=== PATIENT | male | born 1975 | race Caucasian/White ===

== ENCOUNTER 2021-04-04 15:23 | Inpatient (IN) ==
[2021-04-04 16:04] VITALS: BMI 35.5
[2021-04-04] MEDS ORDERED: NS 1000 ML 1,000 ML IV ONE ×2 (16:22→17:49)
[2021-04-04] MEDS ORDERED: ZOFRAN INJ 4 MG VIAL IVP ONE ×2 (16:22→19:56)
--- NOTE | 2021-04-04 16:24 | DR.GENAD ---
HPI Time Seen Time Seen by Provider: 04/04/21 16:22 PCP Primary Care Physician: JULIO SOLOMON HPI Comment HPI Comment: Developed cough and body aches on Tuesday after being exposed to someone with the same; tested positive for covid on ; pcp was to call in med but he never did get it; he started having n/v/weakness on and has been unable to keep bs meds down; had an episode of chest pain which lasted a few seconds yesterday; feels occasional sob; no fever, chills, rash, mejia or rash. Complaint/Symptoms Chief Complaint:: PT TESTED POSITIVE FOR COVID TUESDAY. PT C/O NAUSEA, V OMITING, WEAKNESS SINCE TUESDAY. COVID-19 Coronavirus risk:travel/contact w/high risk person: Yes Mode of Arrival Mode of Arrival: Ambulatory Timing Onset of Chief Complaint: 04/04/21 PMH PMH Past Medical History: Yes Past Medical History: Arthritis, Diabetes, Dyslipidemia and Hypertension Past Surgical History: No Family History History of Family Medical Conditions: Yes Social History Does patient currently use any type of tobacco product: No Have you used tobacco products in the last 12 months: No Type of Tobacco Use: None Does any household member use tobacco: No Alcohol Use: None Do you use any recreational Drugs:: No Lives With: Alone Lives Where: Home Infectious screening In the last 2 months have you had wt loss of >10#?: NO Have you had fever, night sweats or hemotysis?: No Have you traveled outside the country in the last 6 months?: No Isolation: Standard ROS Review of Systems Constitutional: See HPI, Malaise and Weakness Eyes: No Symptoms Reported ENTM: No Symptoms Reported Genitourinary: No Symptoms Reported Neurological: No Symptoms Reported Integumentary: No Symptoms Reported Hematologic/Lymphatic: No Symptoms Reported Endocrine: See HPI Psychiatric: No Symptoms Reported PE Vital Signs Vitals: Temperature 97.8 F Pulse Rate 99 Respiratory Rate 22 Blood Pressure 189/96 O2 Sat by Pulse Oximetry 92 General Limitations: No Limitations General Appearance: Alert and In No Apparent Distress Head Head Exam: Normal Inspection Eyes Eye exam: Normal Appearance Neck Neck Exam: Normal Inspection Chest Chest Inspection: Normal Inspection Respiratory Respiratory Exam: Normal Lung Sounds Bilat Respiratory Exam: Bilateral: Clear to Auscultation Cardiovascular Cardiovascular Exam: Regular Rate and Normal Rhythm Abdominal Exam Abdominal Exam: Normal Inspection, Normal Bowel Sounds and Soft Extremities Extremities Exam: Normal Inspection Back Back Exam: Normal Inspection Neurologic Neurological Exam: Alert and Oriented X3 Psychiatric Psychiatric Exam: Normal Affect and Normal Mood Skin Skin Exam: Other (clammy) COURSE Reevaluation 1st: Improved (sugars down to 513) Consultation Call Returned: 19:00 (spoke with Dr Dumont who accepts pt) ROR Labs Reviewed Laboratory Results Reviewed?: Yes Result Diagrams: 04/04/21 16:30 04/04/21 22:10 Laboratory: WBC 4.2 X10^3/uL (3.6-10.0) 04/04/21 16:30 RBC 4.35 X10^6/uL (3.5-5.4) 04/04/21 16:30 Hgb 13.2 g/dL (12.0-16.0) 04/04/21 16:30 Hct 41.0 % (36.0-47.0) 04/04/21 16:30 MCV 94.3 fL (80.0-100.0) 04/04/21 16:30 MCH 30.4 pg (27.0-34.0) 04/04/21 16:30 MCHC 32.2 g/dL (33.0-35.0) L 04/04/21 16:30 RDW 14.1 % (11.6-16.5) 04/04/21 16:30 Plt Count 246 X10^3/uL (150.0-450.0) 04/04/21 16:30 MPV 8.5 fL (7.4-11.0) 04/04/21 16:30 Neut % (Auto) 88.3 % (42.0-75.0) H 04/04/21 16:30 Lymph % (Auto) 4.7 % (21.0-51.0) L 04/04/21 16:30 [place] % (Auto) 5.6 % (0.0-13.0) 04/04/21 16:30 Eos % (Auto) 0.0 % (0.9-2.9) L 04/04/21 16:30 Baso % (Auto) 1.4 % (0.2-1.0) H 04/04/21 16:30 Neut # (Auto) 3.7 x10^3/uL (2.2-4.8) 04/04/21 16:30 Lymph # (Auto) 0.2 X10^3/uL (1.3-2.9) L 04/04/21 16:30 [place] # (Auto) 0.2 x10^3/uL (0.3-0.8) L 04/04/21 16:30 Eos # (Auto) 0.0 x10^3/uL (0.0-0.2) 04/04/21 16:30 Baso # (Auto) 0.1 X10^3/uL (0.0-0.1) 04/04/21 16:30 Absolute Nucleated RBC 0.0 /100WBC 04/04/21 16:30 Sample Site Rra 04/04/21 16:38 ABG pH 7.190 (7.35-7.45) L* 04/04/21 16:38 ABG pCO2 10.0 mmHg (35.0-45.0) L* 04/04/21 16:38 ABG pO2 91.0 mmHg (80.0-100.0) 04/04/21 16:38 ABG HCO3 3.8 mmol/L (22-26) L* 04/04/21 16:38 ABG O2 Saturation 95.0 % (90-100) 04/04/21 16:38 ABG Base Excess -21.8 mmol/L (-2.0-2.0) L 04/04/21 16:38 Ezekiel Test Pos 04/04/21 16:38 A-a Gradient 46.0 mmHg 04/04/21 16:38 FiO2 21.0 04/04/21 16:38 Blood Gas Comments Pt delicia well eb 04/04/21 16:38 Sodium 140 mmol/L (136-145) 04/04/21 22:10 Corrected Sodium 146 mmol/L (136-145) H 04/04/21 22:10 Potassium 4.7 mmol/L (3.5-5.1) 04/04/21 22:10 Chloride 106 mmol/L (98-107) 04/04/21 22:10 Carbon Dioxide 14.2 mmol/L (21-32) L* 04/04/21 22:10 BUN 40 mg/dL (7-18) H 04/04/21 22:10 Creatinine 1.96 mg/dL (0.70-1.30) H 04/04/21 22:10 Est GFR (MDRD) Af Amer 48 (>60) L 04/04/21 22:10 Est GFR (MDRD) Non-Af 40 (>60) L 04/04/21 22:10 Glucose 338 mg/dL (65-99) H 04/04/21 22:10 Calcium 7.5 mg/dL (8.5-10.1) L 04/04/21 22:10 Corrected Calcium 9.7 mg/dL (8.5-10.1) 04/04/21 16:30 Total Bilirubin 0.50 mg/dL (0.2-1.0) 04/04/21 16:30 AST 27 Units/L (15-37) 04/04/21 16:30 ALT 23 Units/L (12-78) 04/04/21 16:30 Alkaline Phosphatase 161 Units/L (46-116) H 04/04/21 16:30 Total Protein 7.0 g/dL (6.4-8.2) 04/04/21 16:30 Albumin 2.2 g/dL (3.4-5.0) L 04/04/21 16:30 Globulin 4.8 g/dL (2.5-4.5) H 04/04/21 16:30 Albumin/Globulin Ratio 0.5 Ratio (1.1-2.1) L 04/04/21 16:30 Specimen Type Clean catch urine 04/04/21 18:03 Urine Color Yellow (YELLOW) 04/04/21 18:03 Urine Appearance Clear (CLEAR) 04/04/21 18:03 Urine pH 5.0 (5.0 - 8.0) 04/04/21 18:03 Ur Specific [place] 1.020 (1.000-1.030) 04/04/21 18:03 Urine Protein 4+ (NEGATIVE) 04/04/21 18:03 Urine Glucose (UA) 4+ (NEGATIVE) 04/04/21 18:03 Urine Ketones 4+ (NEGATIVE) 04/04/21 18:03 Urine Occult Blood 3+ (NEGATIVE) 04/04/21 18:03 Urine Nitrite Negative (NEGATIVE) 04/04/21 18:03 Urine Bilirubin Negative (NEGATIVE) 04/04/21 18:03 Urine Urobilinogen Normal (NORMAL) 04/04/21 18:03 Ur Leukocyte Esterase Negative (NEGATIVE) 04/04/21 18:03 Urine RBC 3-5 /HPF (0-3) A 04/04/21 18:03 Urine WBC 0-2 /HPF (0-5) 04/04/21 18:03 Ur Squamous Epith Cells Rare /HPF (NEGATIVE) 04/04/21 18:03 Amorphous Sediment 1+ /HPF (NEGATIVE) 04/04/21 18:03 Urine Bacteria Trace /HPF (NEGATIVE) 04/04/21 18:03 Coarse Granular Casts Few /HPF (NEGATIVE) 04/04/21 18:03 Urine Mucus Few /HPF (NEGATIVE) 04/04/21 18:03 Ur Culture Indicated? No/not indicated 04/04/21 18:03 Acetone, Semi-Quant Large (NEGATIVE) H 04/04/21 16:30 XRAY XRAY Interpreted by: Radiologist X-ray Results: abd series: No acute intra-abdominal or intrathoracic abnormality detected. Opioid Opioid Risk Tool Total: 0 Total Score Risk Category: Low Risk Copyright: Suhail SMITH predicting aberrant behaviors Diagnosis Discharge Problem: COVID-19 DKA (diabetic ketoacidosis) Qualifiers: Diabetes mellitus type: type 2 Diabetes mellitus complication detail: without coma Qualified Code(s): E11.10 - Type 2 diabetes mellitus with ketoacidosis without coma
[2021-04-04] MEDS ORDERED: NS 1000 ML 1,000 ML ONE ×3 (16:30→20:14)
[2021-04-04] MEDS ORDERED: ZOFRAN INJ 4 MG VIAL ONE ×2 (16:30→23:15)
[2021-04-04 16:37] LABS: BASOPHILS # (AUTO) 0.1 X10^3/uL (0.0-0.1); BASOPHILS % (AUTO) 1.4 % (0.2-1.0); HEMOGLOBIN 13.2 g/dL (12.0-16.0); LYMPHOCYTES # (AUTO) 0.2 X10^3/uL (1.3-2.9); LYMPHOCYTES % (AUTO) 4.7 % (21.0-51.0); MEAN CORPUSCULAR HEMOGLOBIN 30.4 pg (27.0-34.0); MEAN CORPUSCULAR HGB CONC 32.2 g/dL (33.0-35.0); MEAN CORPUSCULAR VOLUME 94.3 fL (80.0-100.0); MEAN PLATELET VOLUME 8.5 fL (7.4-11.0); MONOCYTES # (AUTO) 0.2 x10^3/uL (0.3-0.8); MONOCYTES % (AUTO) 5.6 % (0.0-13.0); NEUTROPHILS # (AUTO) 3.7 x10^3/uL (2.2-4.8); NEUTROPHILS % (AUTO) 88.3 % (42.0-75.0); PLATELET COUNT 246 X10^3/uL (150.0-450.0); RED BLOOD COUNT 4.35 X10^6/uL (3.5-5.4); RED CELL DISTRIBUTION WIDTH 14.1 % (11.6-16.5); WHITE BLOOD COUNT 4.2 X10^3/uL (3.6-10.0)
[2021-04-04 16:45] LABS: ABG BASE EXCESS -21.8 mmol/L (-2.0-2.0)
[2021-04-04 16:47] LABS: ABG ALLEN TEST POS; ABG HCO3 3.8 mmol/L (22-26)
[2021-04-04 16:53] LABS: ALBUMIN 2.2 g/dL (3.4-5.0); CALCIUM 8.3 mg/dL (8.5-10.1); COR CA(FOR HYPOALB) 9.7 mg/dL (8.5-10.1); CREATININE 2.3 mg/dL (0.55-1.02)
[2021-04-04] MEDS ORDERED: MYXREDLIN 100 UNIT/100 ML BAG 100 UNIT/100 ML PLAST..BAG IV ONE (17:05)
[2021-04-04] MEDS ORDERED: HumuLIN R IV ONE (17:11)
[2021-04-04] MEDS ORDERED: HumuLIN R ONE (17:12)
[2021-04-04] MEDS: MYXREDLIN 100 UNIT/100 ML BAG 100 UNIT/100 ML PLAST..BAG IV PRN (17:18)
[2021-04-04 17:24] LABS: CARBON DIOXIDE 10.9 mmol/L (21-32)
--- NOTE | 2021-04-04 18:18 | RAD ---
HISTORYCOVID, NVDSTUDYACUTE ABDOMEN SERIESCOMPARISONNone availableTECHNIQUEAP supine and upright abdominal radiographs with chest radiography, 4 images.FINDINGSGas and stool in non distended colon.Gas in scattered loops of non-distended small bowel.No gross free air.No abnormal calcifications.No acute osseous abnormality.Lungs are clear of focal airspace disease.No cardiomegaly.No pneumothorax.No pleural effusion.IMPRESSIONNo acute intra-abdominal or intrathoracic abnormality detected.Electronically signed by: Henry Bang (Apr 04, 2021 18:15:54)
[2021-04-04 18:26] LABS: BILIRUBIN,URINE NEGATIVE (NEGATIVE); BLOOD/HEMOGLOBIN,URINE 3+ (NEGATIVE); GLUCOSE, URINE 4+ (NEGATIVE); KETONES,URINE 4+ (NEGATIVE); LEUKOCYTE ESTERASE ,URINE NEGATIVE (NEGATIVE); NITRITES,URINE NEGATIVE (NEGATIVE); PROTEIN,URINE 4+ (NEGATIVE); UROBILINOGEN,URINE NORMAL (NORMAL)
[2021-04-04 18:40] LABS: APPEARANCE,URINE CLEAR (CLEAR); COLOR,URINE YELLOW (YELLOW)
[2021-04-04 18:42] LABS: SQUAMOUS EPITHELIAL CELL,UR RARE /HPF (NEGATIVE)
[2021-04-04 18:43] LABS: AMORPHOUS SEDIMENT,UR 1+ /HPF (NEGATIVE); BACTERIA,URINE TRACE /HPF (NEGATIVE); COARSE GRANULAR CASTS,URINE FEW /HPF (NEGATIVE); MUCUS,URINE FEW /HPF (NEGATIVE)
[2021-04-04] MEDS ORDERED: NORCO 5/325 MG TAB PO PRN (19:56)
[2021-04-04] MEDS: NS 1000 ML 1,000 ML IV SCH (20:25)
[2021-04-04] MEDS: SNACK - Diabetic Appropriate PO SCH (21:00)
[2021-04-04 22:26] LABS: CALCIUM 7.5 mg/dL (8.5-10.1); CREATININE 1.96 mg/dL (0.70-1.30)
[2021-04-04 22:29] LABS: CARBON DIOXIDE 14.2 mmol/L (21-32)
[2021-04-04] MEDS: LOTENSIN TAB 10 MG PO SCH (23:52)
[2021-04-04] MEDS: SEROquel TAB 25 mg PO SCH (23:53)
[2021-04-05] MEDS ORDERED: NS 1000 ML 1,000 ML ONE ×2 (05:24→14:52)
[2021-04-05] MEDS: NS 1000 ML 1,000 ML IV SCH ×2 (05:30→12:37)
[2021-04-05 06:07] LABS: BASOPHILS % (AUTO) 0.1 % (0.2-1.0); HEMATOCRIT 33.1 % (42.0-54.0); HEMOGLOBIN 11.4 g/dL (13.5-18.0); LYMPHOCYTES # (AUTO) 0.4 X10^3/uL (1.3-2.9); LYMPHOCYTES % (AUTO) 8.7 % (21.0-51.0); MEAN CORPUSCULAR HEMOGLOBIN 30.5 pg (27.0-34.0); MEAN CORPUSCULAR HGB CONC 34.5 g/dL (33.0-35.0); MEAN CORPUSCULAR VOLUME 88.5 fL (80.0-100.0); MEAN PLATELET VOLUME 7.6 fL (7.4-11.0); MONOCYTES # (AUTO) 0.3 x10^3/uL (0.3-0.8); MONOCYTES % (AUTO) 6.5 % (0.0-13.0); NEUTROPHILS # (AUTO) 3.9 x10^3/uL (2.2-4.8); NEUTROPHILS % (AUTO) 84.7 % (42.0-75.0); PLATELET COUNT 261 X10^3/uL (150.0-450.0); RED BLOOD COUNT 3.75 X10^6/uL (4.7-6.0); RED CELL DISTRIBUTION WIDTH 13.4 % (11.6-16.5); WHITE BLOOD COUNT 4.7 X10^3/uL (3.6-10.0)
[2021-04-05 06:23] LABS: ALBUMIN 1.8 g/dL (3.4-5.0); CALCIUM 7.7 mg/dL (8.5-10.1); CARBON DIOXIDE 18.4 mmol/L (21-32); COR CA(FOR HYPOALB) 9.5 mg/dL (8.5-10.1); CREATININE 1.91 mg/dL (0.70-1.30); TOTAL PROTEIN 6.1 g/dL (6.4-8.2)
[2021-04-05] MEDS: ZOFRAN INJ 4 MG VIAL IVP PRN ×3 (07:30→22:35)
[2021-04-05] MEDS ORDERED: ZOFRAN INJ 4 MG VIAL ONE ×3 (07:47→22:31)
[2021-04-05] MEDS: LOTENSIN TAB 10 MG PO SCH (08:41)
[2021-04-05] MEDS: BROVANA IN SCH ×2 (09:00→20:52)
[2021-04-05] MEDS: PULMICORT NEB TX 0.5 MG NEB SCH ×2 (09:00→20:58)
[2021-04-05 10:52] LABS: TROPONIN I 0.02 ng/mL (0-1.5)
[2021-04-05] MEDS ORDERED: REMDESIVIR 200 MG in NS 250 ML IV 250 ML IV ONE (11:33)
--- NOTE | 2021-04-05 11:56 | DR.H&P ---
H&P History & Physical for Day of: H&P Date: 04/05/21 Chief Complaint Chief Complaint: Generalized weakness Shortness of breath Nausea, vomiting Allergies Allergies Allergy/AdvReac Type Severity Reaction Status Date / Time No Known Drug Allergies Allergy Verified 04/04/21 17:03 History of Present Illness History of Present Illness: Pt is a 45 year old male past medical history of Hypertension, DMT2, presenting with generalized weakness, shortness of breath, n ausea/vomiting, loss of appetite, abdominal pain, nausea, and vomiting for the past 4-5 days. He reports testing positive for COVID-19 at his pcp office. His symptoms have progressively worsened. Labs/imaging: Wbc 4.7, Hgb 11.4, Plt 261, Na 140, K 4.3, Creatinine 1.91, Glucose 214, AST 24, ALT 16, ALKP 124, ABG:pH 7.19, pCO2 10, pO2 91, HCO3 3.8, O2 sat 95% on FiO2 21%. UA positive for ketones and glucose, CRP 72, Troponin negative, D-dimer 2.06. CXR: Multifocal pneumonia, findings are most severe within the left lung. Pt was given 2L bolus NS in the ED and started on DKA protocol. His glucose levels appropriately responded. Will get COVID-19 test to confirm, and start on treatment protocol that includes: IVF NS@125ml/h, Remdesivir, IV Decadron 6mg, scheduled Bronchodilators, Antibiotics: Zosyn, Ivermectin, Eliquis 5mg BID, immune supporting supplements, supplemental O2, I/S, Respiratory therapy consult, Pneumonia protocol, SSI. Unable to get CTA chest at this time due to renal function. Resume home medications, hold nephrotoxic agents. Pt is currently requiring 3L nasal cannula supplemental O2, titrate/wean as tolerated. Continue to closely monitor and follow up labs/imaging. Time spent on clinical assessment, reviewing labs and imaging, decision making, and documentation greater than 45 minutes. Past Medical History Past Medical History: Arthritis, Diabetes, Dyslipidemia and Hypertension Family History Family Medical History: Diabetes Mellitus, [place], Sudden Cardiac and Hypertension Social History Does patient currently use any type of tobacco product: No Have you used tobacco products in the last 12 months: No Type of Tobacco Use: None Does any household member use tobacco: No Alcohol Use: None Drug Use: None Medications Home Medications: No Known Drug Allergies Allergy (Verified 04/04/21 17:03) Labs Result Diagrams: 04/05/21 05:52 04/05/21 05:52 Labs: Laboratory WBC 4.7 X10^3/uL (3.6-10.0) 04/05/21 05:52 RBC 3.75 X10^6/uL (4.7-6.0) L 04/05/21 05:52 Hgb 11.4 g/dL (13.5-18.0) L 04/05/21 05:52 Hct 33.1 % (42.0-54.0) L 04/05/21 05:52 MCV 88.5 fL (80.0-100.0) 04/05/21 05:52 MCH 30.5 pg (27.0-34.0) 04/05/21 05:52 MCHC 34.5 g/dL (33.0-35.0) 04/05/21 05:52 RDW 13.4 % (11.6-16.5) 04/05/21 05:52 Plt Count 261 X10^3/uL (150.0-450.0) 04/05/21 05:52 MPV 7.6 fL (7.4-11.0) 04/05/21 05:52 Neut % (Auto) 84.7 % (42.0-75.0) H 04/05/21 05:52 Lymph % (Auto) 8.7 % (21.0-51.0) L 04/05/21 05:52 [place] % (Auto) 6.5 % (0.0-13.0) 04/05/21 05:52 Eos % (Auto) 0.0 % (0.9-2.9) L 04/05/21 05:52 Baso % (Auto) 0.1 % (0.2-1.0) L 04/05/21 05:52 Neut # (Auto) 3.9 x10^3/uL (2.2-4.8) 04/05/21 05:52 Lymph # (Auto) 0.4 X10^3/uL (1.3-2.9) L 04/05/21 05:52 [place] # (Auto) 0.3 x10^3/uL (0.3-0.8) 04/05/21 05:52 Eos # (Auto) 0.0 x10^3/uL (0.0-0.2) 04/05/21 05:52 Baso # (Auto) 0.0 X10^3/uL (0.0-0.1) 04/05/21 05:52 Absolute Nucleated RBC 0.0 /100WBC 04/05/21 05:52 D-Dimer 2.06 ug/ml (0.0-0.57) H* 04/05/21 10:26 Sample Site Rra 04/04/21 16:38 ABG pH 7.190 (7.35-7.45) L* 04/04/21 16:38 ABG pCO2 10.0 mmHg (35.0-45.0) L* 04/04/21 16:38 ABG pO2 91.0 mmHg (80.0-100.0) 04/04/21 16:38 ABG HCO3 3.8 mmol/L (22-26) L* 04/04/21 16:38 ABG O2 Saturation 95.0 % (90-100) 04/04/21 16:38 ABG Base Excess -21.8 mmol/L (-2.0-2.0) L 04/04/21 16:38 Ezekiel Test Pos 04/04/21 16:38 A-a Gradient 46.0 mmHg 04/04/21 16:38 FiO2 21.0 04/04/21 16:38 Blood Gas Comments Pt delicia well eb 04/04/21 16:38 Sodium 140 mmol/L (136-145) 04/05/21 05:52 Corrected Sodium 143 mmol/L (136-145) 04/05/21 05:52 Potassium 4.3 mmol/L (3.5-5.1) 04/05/21 05:52 Chloride 107 mmol/L (98-107) 04/05/21 05:52 Carbon Dioxide 18.4 mmol/L (21-32) L 04/05/21 05:52 BUN 39 mg/dL (7-18) H 04/05/21 05:52 Creatinine 1.91 mg/dL (0.70-1.30) H 04/05/21 05:52 Est GFR (MDRD) Af Amer 49 (>60) L 04/05/21 05:52 Est GFR (MDRD) Non-Af 41 (>60) L 04/05/21 05:52 Glucose 214 mg/dL (65-99) H 04/05/21 05:52 Calcium 7.7 mg/dL (8.5-10.1) L 04/05/21 05:52 Corrected Calcium 9.5 mg/dL (8.5-10.1) 04/05/21 05:52 Total Bilirubin 0.20 mg/dL (0.2-1.0) 04/05/21 05:52 AST 24 Units/L (15-37) 04/05/21 05:52 ALT 16 Units/L (12-78) 04/05/21 05:52 Alkaline Phosphatase 124 Units/L (46-116) H 04/05/21 05:52 Troponin I 0.02 ng/mL (0-1.5) 04/05/21 10:26 C-Reactive Protein 72.80 mg/L (0-3.0) H 04/05/21 10:26 Total Protein 6.1 g/dL (6.4-8.2) L 04/05/21 05:52 Albumin 1.8 g/dL (3.4-5.0) L 04/05/21 05:52 Globulin 4.3 g/dL (2.5-4.5) 04/05/21 05:52 Albumin/Globulin Ratio 0.4 Ratio (1.1-2.1) L 04/05/21 05:52 Specimen Type Clean catch urine 04/04/21 18:03 Urine Color Yellow (YELLOW) 04/04/21 18:03 Urine Appearance Clear (CLEAR) 04/04/21 18:03 Urine pH 5.0 (5.0 - 8.0) 04/04/21 18:03 Ur Specific [place] 1.020 (1.000-1.030) 04/04/21 18:03 Urine Protein 4+ (NEGATIVE) 04/04/21 18:03 Urine Glucose (UA) 4+ (NEGATIVE) 04/04/21 18:03 Urine Ketones 4+ (NEGATIVE) 04/04/21 18:03 Urine Occult Blood 3+ (NEGATIVE) 04/04/21 18:03 Urine Nitrite Negative (NEGATIVE) 04/04/21 18:03 Urine Bilirubin Negative (NEGATIVE) 04/04/21 18:03 Urine Urobilinogen Normal (NORMAL) 04/04/21 18:03 Ur Leukocyte Esterase Negative (NEGATIVE) 04/04/21 18:03 Urine RBC 3-5 /HPF (0-3) A 04/04/21 18:03 Urine WBC 0-2 /HPF (0-5) 04/04/21 18:03 Ur Squamous Epith Cells Rare /HPF (NEGATIVE) 04/04/21 18:03 Amorphous Sediment 1+ /HPF (NEGATIVE) 04/04/21 18:03 Urine Bacteria Trace /HPF (NEGATIVE) 04/04/21 18:03 Coarse Granular Casts Few /HPF (NEGATIVE) 04/04/21 18:03 Urine Mucus Few /HPF (NEGATIVE) 04/04/21 18:03 Ur Culture Indicated? No/not indicated 04/04/21 18:03 Acetone, Semi-Quant Large (NEGATIVE) H 04/04/21 16:30 Review of Systems Constitutional: Chills and Weakness Eyes: No Symptoms Reported ENT: No Symptoms Reported Respiratory: Cough and Shortness of Breath Cardiovascular: No Symptoms Reported Gastrointestinal: Nausea, Vomiting and Abdominal Pain; denies Diarrhea and Constipation Genitourinary: No Symptoms Reported Musculoskeletal: No Symptoms Reported Skin: No Symptoms Reported Neurological: No Symptoms Reported Physical Exam Vital Signs: Temperature 98.0 F Pulse Rate [Left Radial] 86 Pulse Rate 99 Respiratory Rate 20 Blood Pressure [Left Arm] 177/90 Blood Pressure 189/96 O2 Sat by Pulse Oximetry 90 Oriented: Normal Eyes: Normal Ear: Normal Nose: Normal Throat: Normal Respiratory: Diminished Throughout and Rhonchi Throughout Cardiovascular: Normal : Normal Auscultation: Bowel Sounds: Normal Palpation: Normal Tenderness: Normal Skin: Normal Musculoskeletal: Normal Psychiatric: Normal Mood Description: Calm and Appropriate Affect: Normal Speech Pattern: Clear and Appropriate Assessment/Plan (1) Pneumonia due to COVID-19 virus: Status: Acute Plan: Per protocol (2) DKA (diabetic ketoacidosis): Qualifiers: Diabetes mellitus complication detail: without coma Diabetes mellitus type: type 2 Qualified Code(s): E11.10 - Type 2 diabetes mellitus with ketoacidosis without coma Narrative Support Text: Per protocol Status: Acute (3) Acute renal failure: Status: Acute Plan: IVF, monitor renal function Review H&P Reviewed: Yes Patient was examined?: Yes
[2021-04-05] MEDS ORDERED: PHARMACY CONSULT - IVERMECTIN XX SCH (12:00)
[2021-04-05] MEDS ORDERED: NS 1000 ML 1,000 ML IV SCH (12:00)
--- NOTE | 2021-04-05 12:34 | RAD ---
HISTORYReason For StudySTUDYCHEST, 1 [id number]/07/21FINDINGSTrachea is midline. Heart size is normal. There are multifocal dense airspace opacities throughout both lungs, findings are more severe on the left. No pleural effusion or pneumothorax. No acute osseous abnormality.IMPRESSIONMultifocal pneumonia, findings are most severe within the left lung.Electronically signed by: CADEN TALAVERA (Apr 05, 2021 12:32:35)
[2021-04-05] MEDS ORDERED: DECADRON INJ ONE (12:45)
[2021-04-05] MEDS ORDERED: REMDESIVIR IV ONE (12:46)
[2021-04-05] MEDS ORDERED: ELIQUIS ONE (12:46)
[2021-04-05] MEDS ORDERED: NS 250 ML IV 250 ML IV ONE (12:46)
[2021-04-05] MEDS: ELIQUIS PO SCH ×3 (12:58→21:46)
[2021-04-05] MEDS: DECADRON INJ IVP SCH (12:59)
[2021-04-05] MEDS ORDERED: SOLU-Medrol 40 MG VIAL IVP SCH (14:00)
[2021-04-05] MEDS: APRESOLINE INJ 20 MG VIAL IVP PRN ×2 (14:20→21:36)
[2021-04-05] MEDS: ZOSYN VIAL 3.375 GRAMS 3.375 G in NS 100 ML IV + SPIKE MINIBAG* 100 ML IV SCH ×2 (14:22→22:37)
[2021-04-05] MEDS: APRESOLINE INJ 20 MG VIAL ONE ×2 (14:22→14:23)
[2021-04-05] MEDS ORDERED: NS 50 ML IV 50 ML IV ONE (14:52)
[2021-04-05] MEDS ORDERED: ASCORBIC ACID INJ MULTI-DOSE VIAL IV ONE (14:52)
[2021-04-05] MEDS: ASCORBIC ACID INJ MULTI-DOSE VIAL 1,500 MG in NS 100 ML IV 100 ML IV SCH ×2 (15:22→21:22)
[2021-04-05] MEDS ORDERED: MYXREDLIN 100 UNIT/100 ML BAG 100 UNIT/100 ML PLAST..BAG IV ONE (20:20)
[2021-04-05] MEDS: MYXREDLIN 100 UNIT/100 ML BAG 100 UNIT/100 ML PLAST..BAG IV PRN (20:31)
[2021-04-05] MEDS ORDERED: APRESOLINE INJ 20 MG VIAL ONE (21:34)
[2021-04-05] MEDS: SNACK - Diabetic Appropriate PO SCH (21:45)
[2021-04-05] MEDS: PEPCID TAB 40 MG PO SCH (21:46)
[2021-04-05] MEDS: ZINC SULFATE PO SCH (21:47)
[2021-04-05] MEDS: SEROquel TAB 25 mg PO SCH (21:47)
[2021-04-06] MEDS ORDERED: NS 100 ML IV 100 ML ONE ×2 (02:48→08:59)
[2021-04-06] MEDS ORDERED: ASCORBIC ACID INJ MULTI-DOSE VIAL IV ONE ×2 (02:50→08:59)
[2021-04-06] MEDS: ASCORBIC ACID INJ MULTI-DOSE VIAL 1,500 MG in NS 100 ML IV 100 ML IV SCH ×4 (03:00→20:00)
[2021-04-06 04:43] LABS: BASOPHILS % (AUTO) 0.4 % (0.2-1.0); HEMATOCRIT 35.8 % (42.0-54.0); HEMOGLOBIN 12.1 g/dL (13.5-18.0); LYMPHOCYTES # (AUTO) 0.2 X10^3/uL (1.3-2.9); LYMPHOCYTES % (AUTO) 3.8 % (21.0-51.0); MEAN CORPUSCULAR HEMOGLOBIN 30.1 pg (27.0-34.0); MEAN CORPUSCULAR HGB CONC 33.8 g/dL (33.0-35.0); MEAN PLATELET VOLUME 7.9 fL (7.4-11.0); MONOCYTES # (AUTO) 0.3 x10^3/uL (0.3-0.8); MONOCYTES % (AUTO) 5.2 % (0.0-13.0); NEUTROPHILS # (AUTO) 5.8 x10^3/uL (2.2-4.8); NEUTROPHILS % (AUTO) 90.6 % (42.0-75.0); PLATELET COUNT 259 X10^3/uL (150.0-450.0); RED BLOOD COUNT 4.02 X10^6/uL (4.7-6.0); RED CELL DISTRIBUTION WIDTH 13.4 % (11.6-16.5); WHITE BLOOD COUNT 6.4 X10^3/uL (3.6-10.0)
[2021-04-06] MEDS ORDERED: APRESOLINE INJ 20 MG VIAL ONE ×2 (04:46→10:08)
[2021-04-06 04:54] LABS: ALBUMIN 1.6 g/dL (3.4-5.0); CALCIUM 7.6 mg/dL (8.5-10.1); CARBON DIOXIDE 17.1 mmol/L (21-32); COR CA(FOR HYPOALB) 9.5 mg/dL (8.5-10.1); CREATININE 1.68 mg/dL (0.70-1.30); TOTAL PROTEIN 6.1 g/dL (6.4-8.2)
[2021-04-06] MEDS: NS 1000 ML 1,000 ML IV SCH ×4 (04:58→20:00)
[2021-04-06] MEDS ORDERED: NS 1000 ML 1,000 ML ONE (04:58)
[2021-04-06] MEDS: APRESOLINE INJ 20 MG VIAL IVP PRN (04:58)
[2021-04-06 05:50] LABS: PLATELET MORPHOLOGY COMMENT NORMAL (NORMAL)
[2021-04-06] MEDS: ZOSYN VIAL 3.375 GRAMS 3.375 G in NS 100 ML IV + SPIKE MINIBAG* 100 ML IV SCH ×3 (06:02→22:00)
--- NOTE | 2021-04-06 06:18 | RAD ---
HISTORYFollow-up COVID-19STUDYChest AP [id number]/08/2021FINDINGSHeart size is normal. Flor are normal. Right lung is now clear. I mprovement is noted in the left lung infiltrates however some residual interstitial and ground-glass infiltrates remain. No pleural effusions are identified. No pneumothoraces are present. Bony thorax i s unremarkable.IMPRESSIONOverall improvement in the bilateral infiltrates being followed with the rig ht lung now clear and slightly decreasing infiltrates on the leftElectronically signed by: WILFRIDO BACH (Apr 06, 2021 06:16:27)
[2021-04-06] MEDS ORDERED: PHENERGAN INJ 25 MG IM ONE (08:55)
[2021-04-06] MEDS: PHENERGAN INJ 25 MG IM PRN (08:59)
[2021-04-06] MEDS ORDERED: APRESOLINE INJ 20 MG VIAL IVP PRN (09:17)
[2021-04-06] MEDS: DECADRON INJ IVP SCH (09:20)
[2021-04-06] MEDS ORDERED: DECADRON INJ ONE (09:22)
[2021-04-06] MEDS: PULMICORT NEB TX 0.5 MG NEB SCH ×2 (10:14→21:20)
[2021-04-06] MEDS: BROVANA IN SCH ×2 (10:14→21:16)
[2021-04-06] MEDS ORDERED: HumuLIN R ONE ×3 (11:10→14:29)
[2021-04-06] MEDS: HumuLIN R SC PRN ×4 (11:14→17:56)
--- NOTE | 2021-04-06 11:44 | PCM.PROG ---
Progress Note Progress Note for Day of Date of Exam: 04/06/21 Subjective Subjective: Pt is a 45 year old male past medical history of Hypertension, DMT2, admitted for COVID-19 pneumonia, DKA, and Acute Renal Failure. This morning patient reports some improvement in respiratory symptoms. He still reports feeling nauseous and weak. Labs/imaging: Wbc 6.4, Hgb 12.1, Plt 259, Na 144, K 4.1, Creatinine 1.68, Glucose 179, CRP 86, CXR: Overall improvement in the bilateral infiltrates being followed with the right lung now clear and slightly decreasing infiltrates on the left. Treatment course includes: IVF NS@125ml/h, Remdesivir, IV Decadron 6mg, scheduled Bronchodilators, Antibiotics: Zosyn, Ivermectin, Eliquis 5mg BID (due to elevated D-dimer), Zofran prn, immune supporting supplements, supplemental O2, I/S, Respiratory therapy consult, Pneumonia protocol, DKA protocol, SSI. Unable to get CTA chest at this time due to renal function. Hold nephrotoxic agents. Will discontinue insulin gtt, start patient on diabetic diet. Pt is currently requiring 3L nasal cannula sup plemental O2, titrate/wean as tolerated. Continue to closely monitor and follow up labs/imaging. Time spent on clinical assessment, reviewing labs and imaging, decision making, and documentation greater than 45 minutes. Past Medical Family Social History Past Med/Fam/Surg Hx: No changes since H&P Allergies: Allergies No Known Drug Allergies Allergy (Verified 04/04/21 17:03) Review of Systems ROS: No change since H&P Vital Signs and I&O's Vital Signs: Temperature 97.7 F Pulse Rate [Left Radial] 97 Pulse Rate 92 Respiratory Rate 24 Blood Pressure [Left Arm] 185/94 Blood Pressure 180/94 O2 Sat by Pulse Oximetry 96 Intake and Output: Intake & Output 04/03/21 04/04/21 04/05/21 04/06/21 23:59 23:59 23:59 23:59 Intake Total 2179 / 2179 3060 / 3060 391 / 391 Output Total 450 / 450 500 / 500 Balance 2179 / 2179 2610 / 2610 -109 / -109 Physical Exam Oriented: Normal Eyes: Normal Ear: Normal Nose: Normal Throat: Normal Respiratory: Diminished Cardiovascular: Normal : Normal Auscultation: Bowel Sounds: Normal Tenderness: Normal Skin: Normal Musculoskeletal: Normal Psychiatric: Normal Mood Description: Calm and Appropriate Affect: Normal Speech Pattern: Clear and Appropriate Laboratory and Diagnostics Result Diagrams: 04/06/21 03:58 04/06/21 03:58 Labs: Laboratory WBC 6.4 X10^3/uL (3.6-10.0) 04/06/21 03:58 RBC 4.02 X10^6/uL (4.7-6.0) L 04/06/21 03:58 Hgb 12.1 g/dL (13.5-18.0) L 04/06/21 03:58 Hct 35.8 % (42.0-54.0) L 04/06/21 03:58 MCV 89.0 fL (80.0-100.0) 04/06/21 03:58 MCH 30.1 pg (27.0-34.0) 04/06/21 03:58 MCHC 33.8 g/dL (33.0-35.0) 04/06/21 03:58 RDW 13.4 % (11.6-16.5) 04/06/21 03:58 Plt Count 259 X10^3/uL (150.0-450.0) 04/06/21 03:58 Plt Count Comment Adequate (ADEQUATE) 04/06/21 03:58 MPV 7.9 fL (7.4-11.0) 04/06/21 03:58 Neut % (Auto) 90.6 % (42.0-75.0) H 04/06/21 03:58 Lymph % (Auto) 3.8 % (21.0-51.0) L 04/06/21 03:58 [place] % (Auto) 5.2 % (0.0-13.0) 04/06/21 03:58 Eos % (Auto) 0.0 % (0.9-2.9) L 04/06/21 03:58 Baso % (Auto) 0.4 % (0.2-1.0) 04/06/21 03:58 Neut # (Auto) 5.8 x10^3/uL (2.2-4.8) H 04/06/21 03:58 Lymph # (Auto) 0.2 X10^3/uL (1.3-2.9) L 04/06/21 03:58 [place] # (Auto) 0.3 x10^3/uL (0.3-0.8) 04/06/21 03:58 Eos # (Auto) 0.0 x10^3/uL (0.0-0.2) 04/06/21 03:58 Baso # (Auto) 0.0 X10^3/uL (0.0-0.1) 04/06/21 03:58 Absolute Nucleated RBC 0.0 /100WBC 04/06/21 03:58 Total Counted 100 04/06/21 03:58 Neutrophils % (Manual) 98 % (39-76) H 04/06/21 03:58 Lymphocytes % (Manual) 2 % (13-43) L 04/06/21 03:58 Plt Morphology Comment Normal (NORMAL) 04/06/21 03:58 RBC Morphology Normal (NORMAL) 04/06/21 03:58 D-Dimer 2.06 ug/ml (0.0-0.57) H* 04/05/21 10:26 Sample Site Rra 04/04/21 16:38 ABG pH 7.190 (7.35-7.45) L* 04/04/21 16:38 ABG pCO2 10.0 mmHg (35.0-45.0) L* 04/04/21 16:38 ABG pO2 91.0 mmHg (80.0-100.0) 04/04/21 16:38 ABG HCO3 3.8 mmol/L (22-26) L* 04/04/21 16:38 ABG O2 Saturation 95.0 % (90-100) 04/04/21 16:38 ABG Base Excess -21.8 mmol/L (-2.0-2.0) L 04/04/21 16:38 Ezekiel Test Pos 04/04/21 16:38 A-a Gradient 46.0 mmHg 04/04/21 16:38 FiO2 21.0 04/04/21 16:38 Blood Gas Comments Pt delicia well eb 04/04/21 16:38 Sodium 144 mmol/L (136-145) 04/06/21 03:58 Corrected Sodium 146 mmol/L (136-145) H 04/06/21 03:58 Potassium 4.1 mmol/L (3.5-5.1) 04/06/21 03:58 Chloride 111 mmol/L (98-107) H 04/06/21 03:58 Carbon Dioxide 17.1 mmol/L (21-32) L 04/06/21 03:58 BUN 35 mg/dL (7-18) H 04/06/21 03:58 Creatinine 1.68 mg/dL (0.70-1.30) H 04/06/21 03:58 Est GFR (MDRD) Af Amer 57 (>60) L 04/06/21 03:58 Est GFR (MDRD) Non-Af 47 (>60) L 04/06/21 03:58 Glucose 179 mg/dL (65-99) H 04/06/21 03:58 Calcium 7.6 mg/dL (8.5-10.1) L 04/06/21 03:58 Corrected Calcium 9.5 mg/dL (8.5-10.1) 04/06/21 03:58 Total Bilirubin 0.20 mg/dL (0.2-1.0) 04/06/21 03:58 AST 22 Units/L (15-37) 04/06/21 03:58 ALT 13 Units/L (12-78) 04/06/21 03:58 Alkaline Phosphatase 110 Units/L (46-116) 04/06/21 03:58 Troponin I 0.02 ng/mL (0-1.5) 04/05/21 10:26 C-Reactive Protein 86.70 mg/L (0-3.0) H 04/06/21 03:58 Total Protein 6.1 g/dL (6.4-8.2) L 04/06/21 03:58 Albumin 1.6 g/dL (3.4-5.0) L 04/06/21 03:58 Globulin 4.5 g/dL (2.5-4.5) 04/06/21 03:58 Albumin/Globulin Ratio 0.4 Ratio (1.1-2.1) L 04/06/21 03:58 Specimen Type Clean catch urine 04/04/21 18:03 Urine Color Yellow (YELLOW) 04/04/21 18:03 Urine Appearance Clear (CLEAR) 04/04/21 18:03 Urine pH 5.0 (5.0 - 8.0) 04/04/21 18:03 Ur Specific [place] 1.020 (1.000-1.030) 04/04/21 18:03 Urine Protein 4+ (NEGATIVE) 04/04/21 18:03 Urine Glucose (UA) 4+ (NEGATIVE) 04/04/21 18:03 Urine Ketones 4+ (NEGATIVE) 04/04/21 18:03 Urine Occult Blood 3+ (NEGATIVE) 04/04/21 18:03 Urine Nitrite Negative (NEGATIVE) 04/04/21 18:03 Urine Bilirubin Negative (NEGATIVE) 04/04/21 18:03 Urine Urobilinogen Normal (NORMAL) 04/04/21 18:03 Ur Leukocyte Esterase Negative (NEGATIVE) 04/04/21 18:03 Urine RBC 3-5 /HPF (0-3) A 04/04/21 18:03 Urine WBC 0-2 /HPF (0-5) 04/04/21 18:03 Ur Squamous Epith Cells Rare /HPF (NEGATIVE) 04/04/21 18:03 Amorphous Sediment 1+ /HPF (NEGATIVE) 04/04/21 18:03 Urine Bacteria Trace /HPF (NEGATIVE) 04/04/21 18:03 Coarse Granular Casts Few /HPF (NEGATIVE) 04/04/21 18:03 Urine Mucus Few /HPF (NEGATIVE) 04/04/21 18:03 Ur Culture Indicated? No/not indicated 04/04/21 18:03 Acetone, Semi-Quant Large (NEGATIVE) H 04/04/21 16:30 SARS CoV-2 RNA Rapid SHIRIN Positive (NEGATIVE) A 04/05/21 13:00 Plan (1) Pneumonia due to COVID-19 virus: Status: Acute Plan: Per protocol (2) DKA (diabetic ketoacidosis): Status: Acute Qualifiers: Diabetes mellitus complication detail: without coma Diabetes mellitus type: type 2 Qualified Code(s): E11.10 - Type 2 diabetes mellitus with ketoacidosis without coma (3) Acute renal failure: Status: Acute Plan: IVF, monitor renal function
[2021-04-06] MEDS ORDERED: PEPCID TAB 40 MG ONE (11:49)
[2021-04-06] MEDS ORDERED: ZINC SULFATE ONE (11:49)
[2021-04-06] MEDS ORDERED: REMDESIVIR IV ONE (11:50)
[2021-04-06] MEDS ORDERED: ELIQUIS ONE (11:50)
[2021-04-06] MEDS ORDERED: NS 250 ML IV 250 ML IV ONE (11:50)
[2021-04-06] MEDS: REMDESIVIR 100 MG in NS 250 ML IV 250 ML IV SCH (11:53)
[2021-04-06] MEDS: PEPCID TAB 40 MG PO SCH ×2 (11:55→20:00)
[2021-04-06] MEDS: ELIQUIS PO SCH ×2 (11:55→20:00)
[2021-04-06] MEDS: IVERMECTIN PO SCH (11:55)
[2021-04-06] MEDS: ZINC SULFATE PO SCH ×2 (11:56→20:43)
[2021-04-06] MEDS ORDERED: CATAPRES TAB 0.1 MG PO ONE (12:47)
[2021-04-06] MEDS ORDERED: TYLENOL 325 MG TAB PO PRN (12:48)
[2021-04-06] MEDS ORDERED: CATAPRES TAB 0.1 MG ONE ×2 (12:56→12:58)
[2021-04-06] MEDS ORDERED: TYLENOL 325 MG TAB PO ONE (12:57)
[2021-04-06] MEDS: CHLORASEPTIC SPRAY MT SCH ×3 (14:04→20:00)
[2021-04-06] MEDS: MAGIC MOUTHWASH MT SCH (14:15)
[2021-04-06] MEDS ORDERED: ZOSYN VIAL 3.375 GRAMS IV ONE (14:22)
[2021-04-06] MEDS ORDERED: NS 100 ML IV + SPIKE MINIBAG* 100 ML IV ONE (14:22)
[2021-04-06] MEDS: SNACK - Diabetic Appropriate PO SCH (20:00)
[2021-04-06] MEDS: SEROquel TAB 25 mg PO SCH (20:42)
[2021-04-07] MEDS: MAGIC MOUTHWASH MT SCH ×4 (00:01→22:41)
[2021-04-07] MEDS: ASCORBIC ACID INJ MULTI-DOSE VIAL 1,500 MG in NS 100 ML IV 100 ML IV SCH ×2 (02:40→10:59)
[2021-04-07] MEDS: ZOFRAN INJ 4 MG VIAL IVP PRN (04:30)
[2021-04-07] MEDS: NS 1000 ML 1,000 ML IV SCH (05:00)
[2021-04-07 05:09] LABS: BASOPHILS % (AUTO) 0.1 % (0.2-1.0); HEMATOCRIT 37.3 % (42.0-54.0); HEMOGLOBIN 12.5 g/dL (13.5-18.0); LYMPHOCYTES # (AUTO) 0.3 X10^3/uL (1.3-2.9); MEAN CORPUSCULAR HEMOGLOBIN 30.4 pg (27.0-34.0); MEAN CORPUSCULAR HGB CONC 33.5 g/dL (33.0-35.0); MEAN CORPUSCULAR VOLUME 90.6 fL (80.0-100.0); MEAN PLATELET VOLUME 8.3 fL (7.4-11.0); MONOCYTES # (AUTO) 0.4 x10^3/uL (0.3-0.8); MONOCYTES % (AUTO) 5.8 % (0.0-13.0); NEUTROPHILS # (AUTO) 6.4 x10^3/uL (2.2-4.8); NEUTROPHILS % (AUTO) 90.1 % (42.0-75.0); PLATELET COUNT 307 X10^3/uL (150.0-450.0); RED BLOOD COUNT 4.12 X10^6/uL (4.7-6.0); RED CELL DISTRIBUTION WIDTH 13.9 % (11.6-16.5); WHITE BLOOD COUNT 7.2 X10^3/uL (3.6-10.0)
[2021-04-07 05:33] LABS: ALBUMIN 1.4 g/dL (3.4-5.0); CALCIUM 7.3 mg/dL (8.5-10.1); COR CA(FOR HYPOALB) 9.4 mg/dL (8.5-10.1); CREATININE 1.79 mg/dL (0.70-1.30); TOTAL PROTEIN 5.9 g/dL (6.4-8.2)
[2021-04-07 05:50] LABS: CARBON DIOXIDE 7.8 mmol/L (21-32)
[2021-04-07 05:56] LABS: PLATELET MORPHOLOGY COMMENT NORMAL (NORMAL)
[2021-04-07] MEDS: ZOSYN VIAL 3.375 GRAMS 3.375 G in NS 100 ML IV + SPIKE MINIBAG* 100 ML IV SCH ×2 (05:56→20:40)
[2021-04-07] MEDS: PHENERGAN INJ 25 MG IM PRN (05:57)
--- NOTE | 2021-04-07 06:23 | RAD ---
HISTORYPNEUMONIA F/USTUDYCHEST, 1 [id number]/2021.TECHNIQUEAP view of the chestFINDINGSCardiac and mediastinal contours are within normal limits. Interval worsening in scattered bilateral airspace opacities, worse on the left in the midlung. No definite pleural effusion or pneumothorax.IMPRESSIONInterval worsening of COVID pneumonia.Electronically signed by: Bart Pineda (Apr 07, 2021 06:20:53)
[2021-04-07] MEDS ORDERED: MORPHINE SULFATE INJ 2 MG INJ ONE (08:35)
[2021-04-07] MEDS ORDERED: MORPHINE SULFATE INJ 2 MG INJ IVP ONE (08:46)
[2021-04-07] MEDS ORDERED: NORMODYNE INJ 100 MG VIAL IVP PRN (08:47)
[2021-04-07 09:17] LABS: CKMB % 0.8 % (<4); CREATINE KINASE 217 Units/L (39-308); CREATINE KINASE MB 1.8 ng/mL (0-4.0); TROPONIN I < 0.02 ng/mL (0-1.5)
--- NOTE | 2021-04-07 09:24 | PCM.PROG ---
Progress Note Progress Note for Day of Date of Exam: 04/07/21 Subjective Subjective: Pt is a 45 year old male past medical history of Hypertension, DMT2, admitted for COVID-19 pneumonia, DKA, and Acute Renal Failure. This morning patient's respiratory status acutely declined and he was placed from heated high flow to BiPAP support. He is also complaining of chest pain. Labs/imaging: Wbc 7.2, Hgb 12.5, Plt 307, Na 139, K 4.7, HCO3 7.8, Creatinine 1.79, Glucose 179, CRP 86>95, CXR: Interval worsening in scattered bilateral airspace opacities, worse on the left in the midlung. Treatment course includes: IVF NS@125ml/h, Remdesivir, IV Decadron 6mg, scheduled Bronchodilators, Antibiotics: Zosyn, Ivermectin, Eliquis 5mg BID (due to elevated D-dimer), Zofran prn, immune sup porting supplements, supplemental O2, I/S, Respiratory therapy consult, Pneumonia protocol, DKA protocol, SSI. Hold nephrotoxic agents. Restart patient on DKA protocol. Ekg no STEMI, will get cardiac enzymes and ABG stat. Pt now with acute respiratory failure. CTA chest ordered. Repeat CMP at noon. Continue to closely monitor and follow up labs/imaging. Critical care time spent 30-74 minutes in clinical assessment, reviewing labs/imaging, decision making, and documentation. Past Medical Family Social History Past Med/Fam/Surg Hx: No changes since H&P Allergies: Allergies No Known Drug Allergies Allergy (Verified 04/04/21 17:03) Review of Systems ROS: No change since H&P Vital Signs and I&O's Vital Signs: Temperature 97.0 F Pulse Rate [Left Radial] 97 Pulse Rate 88 Respiratory Rate 21 Blood Pressure [Left Arm] 185/94 Blood Pressure 132/90 O2 Sat by Pulse Oximetry 88 Intake and Output: Intake & Output 04/04/21 04/05/21 04/06/21 04/07/21 23:59 23:59 23:59 23:59 Intake Total 2179 / 2179 3060 / 3060 771 / 771 400 / 400 Output Total 450 / 450 1000 / 1000 Balance 2179 / 2179 2610 / 2610 -229 / -229 400 / 400 Physical Exam Oriented: Normal Eyes: Normal Ear: Normal Nose: Normal Throat: Normal Respiratory: Diminished and Rales Cardiovascular: Normal : Normal Auscultation: Bowel Sounds: Normal Tenderness: Normal Skin: Normal Musculoskeletal: Normal Psychiatric: Anxiety Mood Description: Anxious Affect: Anxious Speech Pattern: Unclear (on BiPAP) Laboratory and Diagnostics Result Diagrams: 04/07/21 04:41 04/07/21 04:41 Labs: Laboratory WBC 7.2 X10^3/uL (3.6-10.0) 04/07/21 04:41 RBC 4.12 X10^6/uL (4.7-6.0) L 04/07/21 04:41 Hgb 12.5 g/dL (13.5-18.0) L 04/07/21 04:41 Hct 37.3 % (42.0-54.0) L 04/07/21 04:41 MCV 90.6 fL (80.0-100.0) 04/07/21 04:41 MCH 30.4 pg (27.0-34.0) 04/07/21 04:41 MCHC 33.5 g/dL (33.0-35.0) 04/07/21 04:41 RDW 13.9 % (11.6-16.5) 04/07/21 04:41 Plt Count 307 X10^3/uL (150.0-450.0) 04/07/21 04:41 Plt Count Comment Adequate (ADEQUATE) 04/07/21 04:41 MPV 8.3 fL (7.4-11.0) 04/07/21 04:41 Neut % (Auto) 90.1 % (42.0-75.0) H 04/07/21 04:41 Lymph % (Auto) 4.0 % (21.0-51.0) L 04/07/21 04:41 [place] % (Auto) 5.8 % (0.0-13.0) 04/07/21 04:41 Eos % (Auto) 0.0 % (0.9-2.9) L 04/07/21 04:41 Baso % (Auto) 0.1 % (0.2-1.0) L 04/07/21 04:41 Neut # (Auto) 6.4 x10^3/uL (2.2-4.8) H 04/07/21 04:41 Lymph # (Auto) 0.3 X10^3/uL (1.3-2.9) L 04/07/21 04:41 [place] # (Auto) 0.4 x10^3/uL (0.3-0.8) 04/07/21 04:41 Eos # (Auto) 0.0 x10^3/uL (0.0-0.2) 04/07/21 04:41 Baso # (Auto) 0.0 X10^3/uL (0.0-0.1) 04/07/21 04:41 Absolute Nucleated RBC 0.1 /100WBC 04/07/21 04:41 Total Counted 100 04/07/21 04:41 Neutrophils % (Manual) 94 % (39-76) H 04/07/21 04:41 Lymphocytes % (Manual) 6 % (13-43) L 04/07/21 04:41 Plt Morphology Comment Normal (NORMAL) 04/07/21 04:41 RBC Morphology Normal (NORMAL) 04/07/21 04:41 D-Dimer 2.06 ug/ml (0.0-0.57) H* 04/05/21 10:26 Sample Site Rra 04/04/21 16:38 ABG pH 7.190 (7.35-7.45) L* 04/04/21 16:38 ABG pCO2 10.0 mmHg (35.0-45.0) L* 04/04/21 16:38 ABG pO2 91.0 mmHg (80.0-100.0) 04/04/21 16:38 ABG HCO3 3.8 mmol/L (22-26) L* 04/04/21 16:38 ABG O2 Saturation 95.0 % (90-100) 04/04/21 16:38 ABG Base Excess -21.8 mmol/L (-2.0-2.0) L 04/04/21 16:38 Ezekiel Test Pos 04/04/21 16:38 A-a Gradient 46.0 mmHg 04/04/21 16:38 FiO2 21.0 04/04/21 16:38 Blood Gas Comments Pt delicia well eb 04/04/21 16:38 Sodium 139 mmol/L (136-145) 04/07/21 04:41 Corrected Sodium 146 mmol/L (136-145) H 04/07/21 04:41 Potassium 4.7 mmol/L (3.5-5.1) 04/07/21 04:41 Chloride 106 mmol/L (98-107) 04/07/21 04:41 Carbon Dioxide 7.8 mmol/L (21-32) L* 04/07/21 04:41 BUN 45 mg/dL (7-18) H 04/07/21 04:41 Creatinine 1.79 mg/dL (0.70-1.30) H 04/07/21 04:41 Est GFR (MDRD) Af Amer 53 (>60) L 04/07/21 04:41 Est GFR (MDRD) Non-Af 44 (>60) L 04/07/21 04:41 Glucose 411 mg/dL (65-99) H 04/07/21 04:41 Calcium 7.3 mg/dL (8.5-10.1) L 04/07/21 04:41 Corrected Calcium 9.4 mg/dL (8.5-10.1) 04/07/21 04:41 Total Bilirubin 0.30 mg/dL (0.2-1.0) 04/07/21 04:41 AST 42 Units/L (15-37) H 04/07/21 04:41 ALT 18 Units/L (12-78) 04/07/21 04:41 Alkaline Phosphatase 129 Units/L (46-116) H 04/07/21 04:41 Troponin I 0.02 ng/mL (0-1.5) 04/05/21 10:26 C-Reactive Protein 95.90 mg/L (0-3.0) H 04/07/21 04:41 Total Protein 5.9 g/dL (6.4-8.2) L 04/07/21 04:41 Albumin 1.4 g/dL (3.4-5.0) L 04/07/21 04:41 Globulin 4.5 g/dL (2.5-4.5) 04/07/21 04:41 Albumin/Globulin Ratio 0.3 Ratio (1.1-2.1) L 04/07/21 04:41 Specimen Type Clean catch urine 04/04/21 18:03 Urine Color Yellow (YELLOW) 04/04/21 18:03 Urine Appearance Clear (CLEAR) 04/04/21 18:03 Urine pH 5.0 (5.0 - 8.0) 04/04/21 18:03 Ur Specific [place] 1.020 (1.000-1.030) 04/04/21 18:03 Urine Protein 4+ (NEGATIVE) 04/04/21 18:03 Urine Glucose (UA) 4+ (NEGATIVE) 04/04/21 18:03 Urine Ketones 4+ (NEGATIVE) 04/04/21 18:03 Urine Occult Blood 3+ (NEGATIVE) 04/04/21 18:03 Urine Nitrite Negative (NEGATIVE) 04/04/21 18:03 Urine Bilirubin Negative (NEGATIVE) 04/04/21 18:03 Urine Urobilinogen Normal (NORMAL) 04/04/21 18:03 Ur Leukocyte Esterase Negative (NEGATIVE) 04/04/21 18:03 Urine RBC 3-5 /HPF (0-3) A 04/04/21 18:03 Urine WBC 0-2 /HPF (0-5) 04/04/21 18:03 Ur Squamous Epith Cells Rare /HPF (NEGATIVE) 04/04/21 18:03 Amorphous Sediment 1+ /HPF (NEGATIVE) 04/04/21 18:03 Urine Bacteria Trace /HPF (NEGATIVE) 04/04/21 18:03 Coarse Granular Casts Few /HPF (NEGATIVE) 04/04/21 18:03 Urine Mucus Few /HPF (NEGATIVE) 04/04/21 18:03 Ur Culture Indicated? No/not indicated 04/04/21 18:03 Acetone, Semi-Quant Large (NEGATIVE) H 04/04/21 16:30 SARS CoV-2 RNA Rapid SHIRIN Positive (NEGATIVE) A 04/05/21 13:00 Plan (1) Pneumonia due to COVID-19 virus: Status: Acute Plan: Per protocol (2) DKA (diabetic ketoacidosis): Status: Acute Qualifiers: Diabetes mellitus complication detail: without coma Diabetes mellitus type: type 2 Qualified Code(s): E11.10 - Type 2 diabetes mellitus with ketoacidosis without coma (3) Acute renal failure: Status: Acute Plan: IVF, monitor renal function (4) Acute respiratory failure: Status: Acute
[2021-04-07] MEDS ORDERED: MORPHINE SULFATE INJ 2 MG INJ IVP PRN (09:30)
[2021-04-07] MEDS ORDERED: NS 100 ML IV 100 ML ONE (09:39)
[2021-04-07] MEDS: PULMICORT NEB TX 0.5 MG NEB SCH ×2 (10:00→21:00)
[2021-04-07] MEDS: BROVANA IN SCH ×2 (10:00→21:00)
[2021-04-07] MEDS ORDERED: NS 500 ML IV 500 ML IV ONE ×2 (11:09→15:15)
[2021-04-07 11:29] LABS: ABG BASE EXCESS -26.6 mmol/L (-2.0-2.0)
[2021-04-07 11:31] LABS: ABG HCO3 3.5 mmol/L (22-26)
[2021-04-07] MEDS ORDERED: NS 500 ML IV 500 ML IV PRN (11:32)
[2021-04-07] MEDS ORDERED: NS 1000 ML 1,000 ML IV ONE (11:53)
[2021-04-07] MEDS: CHLORASEPTIC SPRAY MT SCH ×5 (12:19→20:42)
[2021-04-07] MEDS: VITAMIN D3 125 mcg (5,000 UNITS) PO SCH (12:19)
[2021-04-07] MEDS: ELIQUIS PO SCH ×2 (12:20→20:41)
[2021-04-07] MEDS: IVERMECTIN PO SCH (12:20)
[2021-04-07] MEDS: PEPCID TAB 40 MG PO SCH ×2 (12:21→20:41)
[2021-04-07] MEDS: ZINC SULFATE PO SCH ×2 (12:21→20:41)
[2021-04-07] MEDS: VITAMIN A PO SCH (12:22)
[2021-04-07] MEDS: REMDESIVIR 100 MG in NS 250 ML IV 250 ML IV SCH (12:24)
[2021-04-07 12:53] LABS: ALBUMIN 1.5 g/dL (3.4-5.0); CALCIUM 7.3 mg/dL (8.5-10.1); COR CA(FOR HYPOALB) 9.3 mg/dL (8.5-10.1); CREATININE 2.24 mg/dL (0.70-1.30); TOTAL PROTEIN 5.2 g/dL (6.4-8.2)
[2021-04-07 12:54] LABS: CARBON DIOXIDE 6.4 mmol/L (21-32)
[2021-04-07] MEDS ORDERED: LR 1000 ML IV 1,000 ML IV ONE (13:44)
[2021-04-07] MEDS: ASCORBIC ACID INJ MULTI-DOSE VIAL 1,500 MG in NS 50 ML IV 50 ML IV SCH ×2 (14:14→20:40)
[2021-04-07 14:47] LABS: ABG ALLEN TEST POS; ABG PH < 6.800 (7.35-7.45)
--- NOTE | 2021-04-07 14:55 | DR.CA ---
HPI PCP Primary Care Physician: JULIO SOLOMON Complaint Chief Complaint Doctor Comments: 45 y/o male, hospitalized for covid, DKA, went into cardiac arrest. Was preceded by drop in BP per nursing staff. Chief Complaint:: Cardiac arrest COVID-19 Coronavirus risk:travel/contact w/high risk person: Yes Source History Provided: Other (In patient RNs) Timing Cardiac Arrest Time: 1420 Onset of Chief Complaint: 04/04/21 PMH PMH Past Medical History: Yes Past Medical History: Arthritis, Diabetes, Dyslipidemia and Hypertension Past Surgical History: No Family History History of Family Medical Conditions: Yes Family Medical History: Diabetes Mellitus, [place], Sudden Cardiac and Hypertension Social History Does patient currently use any type of tobacco product: No Have you used tobacco products in the last 12 months: No Type of Tobacco Use: None Does any household member use tobacco: No Alcohol Use: None Do you use any recreational Drugs:: No Lives With: Spouse and Family Lives Where: Home Travel Risk Coronavirus risk:travel/contact w/high risk person: Yes Infectious screening In the last 2 months have you had wt loss of >10#?: NO Have you had fever, night sweats or hemotysis?: No Have you traveled outside the country in the last 6 months?: No Isolation: Droplet ROS Review of Systems Unable to Obtain Due To: Intubated (in full arrest) PE Vitals Vital Signs: Temp Pulse Resp BP Pulse Ox 04/04/21 15:57 97.8 F 99 H 22 189/96 92 L General General Appearance: Other (no spontaneous respirations, no pulse. Has been intubated by anesthesia.) Airway Airway: Intubated ET tube placement confirmed by: Exam Neck Neck Exam: Normal Inspection Respiratory Ventilation: Assisted Respiratory Exam: Other (equal breath sounds with bagging thru ET tube.) Cardiovascular Cardiovascular Exam: Other (asystole) Abdominal Exam Abdominal Exam: Soft Extremities Extremities Exam: Normal Inspection Skin Skin Exam: Warm COURSE Treatment Treatment: Pt inpatient, on the covid floor, went into cardiac arrest. Has been intubated already, nurses gave 2 epi's so far. CPR continued. Given additional epi, plus a bicarb (h/o DKA). Went into vent fib, defibbed with 200 J x 1, 4th epi given. Changed to sinus barbie, given IV atropine. + return of spontaneous circulation. ROR Labs Reviewed Result Diagrams: 04/07/21 04:41 04/07/21 13:20 Laboratory: WBC 4.2 X10^3/uL (3.6-10.0) 04/04/21 16:30 RBC 4.35 X10^6/uL (3.5-5.4) 04/04/21 16:30 Hgb 13.2 g/dL (12.0-16.0) 04/04/21 16:30 Hct 41.0 % (36.0-47.0) 04/04/21 16:30 MCV 94.3 fL (80.0-100.0) 04/04/21 16:30 MCH 30.4 pg (27.0-34.0) 04/04/21 16:30 MCHC 32.2 g/dL (33.0-35.0) L 04/04/21 16:30 RDW 14.1 % (11.6-16.5) 04/04/21 16:30 Plt Count 246 X10^3/uL (150.0-450.0) 04/04/21 16:30 MPV 8.5 fL (7.4-11.0) 04/04/21 16:30 Neut % (Auto) 88.3 % (42.0-75.0) H 04/04/21 16:30 Lymph % (Auto) 4.7 % (21.0-51.0) L 04/04/21 16:30 [place] % (Auto) 5.6 % (0.0-13.0) 04/04/21 16:30 Eos % (Auto) 0.0 % (0.9-2.9) L 04/04/21 16:30 Baso % (Auto) 1.4 % (0.2-1.0) H 04/04/21 16:30 Neut # (Auto) 3.7 x10^3/uL (2.2-4.8) 04/04/21 16:30 Lymph # (Auto) 0.2 X10^3/uL (1.3-2.9) L 04/04/21 16:30 [place] # (Auto) 0.2 x10^3/uL (0.3-0.8) L 04/04/21 16:30 Eos # (Auto) 0.0 x10^3/uL (0.0-0.2) 04/04/21 16:30 Baso # (Auto) 0.1 X10^3/uL (0.0-0.1) 04/04/21 16:30 Absolute Nucleated RBC 0.0 /100WBC 04/04/21 16:30 Sample Site Rra 04/04/21 16:38 ABG pH 7.190 (7.35-7.45) L* 04/04/21 16:38 ABG pCO2 10.0 mmHg (35.0-45.0) L* 04/04/21 16:38 ABG pO2 91.0 mmHg (80.0-100.0) 04/04/21 16:38 ABG HCO3 3.8 mmol/L (22-26) L* 04/04/21 16:38 ABG O2 Saturation 95.0 % (90-100) 04/04/21 16:38 ABG Base Excess -21.8 mmol/L (-2.0-2.0) L 04/04/21 16:38 Ezekiel Test Pos 04/04/21 16:38 A-a Gradient 46.0 mmHg 04/04/21 16:38 FiO2 21.0 04/04/21 16:38 Blood Gas Comments Pt delicia well eb 04/04/21 16:38 Sodium 140 mmol/L (136-145) 04/04/21 22:10 Corrected Sodium 146 mmol/L (136-145) H 04/04/21 22:10 Potassium 4.7 mmol/L (3.5-5.1) 04/04/21 22:10 Chloride 106 mmol/L (98-107) 04/04/21 22:10 Carbon Dioxide 14.2 mmol/L (21-32) L* 04/04/21 22:10 BUN 40 mg/dL (7-18) H 04/04/21 22:10 Creatinine 1.96 mg/dL (0.70-1.30) H 04/04/21 22:10 Est GFR (MDRD) Af Amer 48 (>60) L 04/04/21 22:10 Est GFR (MDRD) Non-Af 40 (>60) L 04/04/21 22:10 Glucose 338 mg/dL (65-99) H 04/04/21 22:10 Calcium 7.5 mg/dL (8.5-10.1) L 04/04/21 22:10 Corrected Calcium 9.7 mg/dL (8.5-10.1) 04/04/21 16:30 Total Bilirubin 0.50 mg/dL (0.2-1.0) 04/04/21 16:30 AST 27 Units/L (15-37) 04/04/21 16:30 ALT 23 Units/L (12-78) 04/04/21 16:30 Alkaline Phosphatase 161 Units/L (46-116) H 04/04/21 16:30 Total Protein 7.0 g/dL (6.4-8.2) 04/04/21 16:30 Albumin 2.2 g/dL (3.4-5.0) L 04/04/21 16:30 Globulin 4.8 g/dL (2.5-4.5) H 04/04/21 16:30 Albumin/Globulin Ratio 0.5 Ratio (1.1-2.1) L 04/04/21 16:30 Specimen Type Clean catch urine 04/04/21 18:03 Urine Color Yellow (YELLOW) 04/04/21 18:03 Urine Appearance Clear (CLEAR) 04/04/21 18:03 Urine pH 5.0 (5.0 - 8.0) 04/04/21 18:03 Ur Specific [place] 1.020 (1.000-1.030) 04/04/21 18:03 Urine Protein 4+ (NEGATIVE) 04/04/21 18:03 Urine Glucose (UA) 4+ (NEGATIVE) 04/04/21 18:03 Urine Ketones 4+ (NEGATIVE) 04/04/21 18:03 Urine Occult Blood 3+ (NEGATIVE) 04/04/21 18:03 Urine Nitrite Negative (NEGATIVE) 04/04/21 18:03 Urine Bilirubin Negative (NEGATIVE) 04/04/21 18:03 Urine Urobilinogen Normal (NORMAL) 04/04/21 18:03 Ur Leukocyte Esterase Negative (NEGATIVE) 04/04/21 18:03 Urine RBC 3-5 /HPF (0-3) A 04/04/21 18:03 Urine WBC 0-2 /HPF (0-5) 04/04/21 18:03 Ur Squamous Epith Cells Rare /HPF (NEGATIVE) 04/04/21 18:03 Amorphous Sediment 1+ /HPF (NEGATIVE) 04/04/21 18:03 Urine Bacteria Trace /HPF (NEGATIVE) 04/04/21 18:03 Coarse Granular Casts Few /HPF (NEGATIVE) 04/04/21 18:03 Urine Mucus Few /HPF (NEGATIVE) 04/04/21 18:03 Ur Culture Indicated? No/not indicated 04/04/21 18:03 Acetone, Semi-Quant Large (NEGATIVE) H 04/04/21 16:30 Opioid Opioid Risk Tool Age (Denys box if 16-45): Yes History of Preadolescent Sexual Abuse: No Total: 1 Total Score Risk Category: Low Risk Copyright: Suhail SMITH predicting aberrant behaviors
--- NOTE | 2021-04-07 15:09 | DR.GENAD ---
HPI PCP Primary Care Physician: JULIO SOLOMON Complaint/Symptoms Chief Complaint:: PT TESTED POSITIVE FOR COVID TUESDAY. PT C/O NAUSEA, VOMITING, WEAKNESS SINCE TUESDAY. COVID-19 Coronavirus risk:travel/contact w/high risk person: Yes Mode of Arrival Mode of Arrival: Ambulatory Timing Onset of Chief Complaint: 04/04/21 PMH PMH Past Medical History: Yes Past Medical History: Arthritis, Diabetes, Dyslipidemia and Hypertension Past Surgical History: No Family History History of Family Medical Conditions: Yes Family Medical History: Diabetes Mellitus, [place], Sudden Cardiac and Hypertension Social History Does patient currently use any type of tobacco product: No Have you used tobacco products in the last 12 months: No Type of Tobacco Use: None Does any household member use tobacco: No Alcohol Use: None Do you use any recreational Drugs:: No Lives With: Spouse and Family Lives Where: Home Travel Risk Coronavirus risk:travel/contact w/high risk person: Yes Infectious screening In the last 2 months have you had wt loss of >10#?: NO Have you had fever, night sweats or hemotysis?: No Have you traveled outside the country in the last 6 months?: No Isolation: Droplet PE Vital Signs Vitals: Temperature 97.8 F Pulse Rate 99 Respiratory Rate 22 Blood Pressure 189/96 O2 Sat by Pulse Oximetry 92 ROR Labs Reviewed Result Diagrams: 04/07/21 04:41 04/07/21 13:20 Laboratory: WBC 4.2 X10^3/uL (3.6-10.0) 04/04/21 16:30 RBC 4.35 X10^6/uL (3.5-5.4) 04/04/21 16:30 Hgb 13.2 g/dL (12.0-16.0) 04/04/21 16:30 Hct 41.0 % (36.0-47.0) 04/04/21 16:30 MCV 94.3 fL (80.0-100.0) 04/04/21 16:30 MCH 30.4 pg (27.0-34.0) 04/04/21 16:30 MCHC 32.2 g/dL (33.0-35.0) L 04/04/21 16:30 RDW 14.1 % (11.6-16.5) 04/04/21 16:30 Plt Count 246 X10^3/uL (150.0-450.0) 04/04/21 16:30 MPV 8.5 fL (7.4-11.0) 04/04/21 16:30 Neut % (Auto) 88.3 % (42.0-75.0) H 04/04/21 16:30 Lymph % (Auto) 4.7 % (21.0-51.0) L 04/04/21 16:30 [place] % (Auto) 5.6 % (0.0-13.0) 04/04/21 16:30 Eos % (Auto) 0.0 % (0.9-2.9) L 04/04/21 16:30 Baso % (Auto) 1.4 % (0.2-1.0) H 04/04/21 16:30 Neut # (Auto) 3.7 x10^3/uL (2.2-4.8) 04/04/21 16:30 Lymph # (Auto) 0.2 X10^3/uL (1.3-2.9) L 04/04/21 16:30 [place] # (Auto) 0.2 x10^3/uL (0.3-0.8) L 04/04/21 16:30 Eos # (Auto) 0.0 x10^3/uL (0.0-0.2) 04/04/21 16:30 Baso # (Auto) 0.1 X10^3/uL (0.0-0.1) 04/04/21 16:30 Absolute Nucleated RBC 0.0 /100WBC 04/04/21 16:30 Sample Site Rra 04/04/21 16:38 ABG pH 7.190 (7.35-7.45) L* 04/04/21 16:38 ABG pCO2 10.0 mmHg (35.0-45.0) L* 04/04/21 16:38 ABG pO2 91.0 mmHg (80.0-100.0) 04/04/21 16:38 ABG HCO3 3.8 mmol/L (22-26) L* 04/04/21 16:38 ABG O2 Saturation 95.0 % (90-100) 04/04/21 16:38 ABG Base Excess -21.8 mmol/L (-2.0-2.0) L 04/04/21 16:38 Ezekiel Test Pos 04/04/21 16:38 A-a Gradient 46.0 mmHg 04/04/21 16:38 FiO2 21.0 04/04/21 16:38 Blood Gas Comments Pt delicia well eb 04/04/21 16:38 Sodium 140 mmol/L (136-145) 04/04/21 22:10 Corrected Sodium 146 mmol/L (136-145) H 04/04/21 22:10 Potassium 4.7 mmol/L (3.5-5.1) 04/04/21 22:10 Chloride 106 mmol/L (98-107) 04/04/21 22:10 Carbon Dioxide 14.2 mmol/L (21-32) L* 04/04/21 22:10 BUN 40 mg/dL (7-18) H 04/04/21 22:10 Creatinine 1.96 mg/dL (0.70-1.30) H 04/04/21 22:10 Est GFR (MDRD) Af Amer 48 (>60) L 04/04/21 22:10 Est GFR (MDRD) Non-Af 40 (>60) L 04/04/21 22:10 Glucose 338 mg/dL (65-99) H 04/04/21 22:10 Calcium 7.5 mg/dL (8.5-10.1) L 04/04/21 22:10 Corrected Calcium 9.7 mg/dL (8.5-10.1) 04/04/21 16:30 Total Bilirubin 0.50 mg/dL (0.2-1.0) 04/04/21 16:30 AST 27 Units/L (15-37) 04/04/21 16:30 ALT 23 Units/L (12-78) 04/04/21 16:30 Alkaline Phosphatase 161 Units/L (46-116) H 04/04/21 16:30 Total Protein 7.0 g/dL (6.4-8.2) 04/04/21 16:30 Albumin 2.2 g/dL (3.4-5.0) L 04/04/21 16:30 Globulin 4.8 g/dL (2.5-4.5) H 04/04/21 16:30 Albumin/Globulin Ratio 0.5 Ratio (1.1-2.1) L 04/04/21 16:30 Specimen Type Clean catch urine 04/04/21 18:03 Urine Color Yellow (YELLOW) 04/04/21 18:03 Urine Appearance Clear (CLEAR) 04/04/21 18:03 Urine pH 5.0 (5.0 - 8.0) 04/04/21 18:03 Ur Specific [place] 1.020 (1.000-1.030) 04/04/21 18:03 Urine Protein 4+ (NEGATIVE) 04/04/21 18:03 Urine Glucose (UA) 4+ (NEGATIVE) 04/04/21 18:03 Urine Ketones 4+ (NEGATIVE) 04/04/21 18:03 Urine Occult Blood 3+ (NEGATIVE) 04/04/21 18:03 Urine Nitrite Negative (NEGATIVE) 04/04/21 18:03 Urine Bilirubin Negative (NEGATIVE) 04/04/21 18:03 Urine Urobilinogen Normal (NORMAL) 04/04/21 18:03 Ur Leukocyte Esterase Negative (NEGATIVE) 04/04/21 18:03 Urine RBC 3-5 /HPF (0-3) A 04/04/21 18:03 Urine WBC 0-2 /HPF (0-5) 04/04/21 18:03 Ur Squamous Epith Cells Rare /HPF (NEGATIVE) 04/04/21 18:03 Amorphous Sediment 1+ /HPF (NEGATIVE) 04/04/21 18:03 Urine Bacteria Trace /HPF (NEGATIVE) 04/04/21 18:03 Coarse Granular Casts Few /HPF (NEGATIVE) 04/04/21 18:03 Urine Mucus Few /HPF (NEGATIVE) 04/04/21 18:03 Ur Culture Indicated? No/not indicated 04/04/21 18:03 Acetone, Semi-Quant Large (NEGATIVE) H 04/04/21 16:30 Opioid Opioid Risk Tool Age (Denys box if 16-45): Yes History of Preadolescent Sexual Abuse: No Total: 1 Total Score Risk Category: Low Risk Copyright: Suhail SMITH predicting aberrant behaviors
--- NOTE | 2021-04-07 15:12 | RAD ---
HISTORYET TUBE PLACEMENT, COVID + DIABETIC, HTN, DISLIPIDEMIASTUDYCHEST, 1 VIEWCOMPARISONPortable chest April 07, 2021 at 4:41 a.m.FINDINGSThe trachea is midline. ET tube has been placed and is in good position 4 cm above the mya. The cardiac silhouette is unremarkable. The bilateral left greater than right interstitial infiltrates are again noted unchanged mildly worsened on the left and worsening on the right. The bony thorax is unremarkable.IMPRESSIONMild worsening of the interstitial infiltrates bilaterally compared to this morning's film.ET tube is in good position.Electronically signed by: HEIKE ANNA (Apr 07, 2021 15:09:06)
[2021-04-07 15:32] LABS: ALANINE AMINOTRANSFERASE 77 Units/L (12-78); ALBUMIN 1.3 g/dL (3.4-5.0); ALKALINE PHOSPHATASE 246 Units/L (46-116); ASPARTATE AMINO TRANSFERASE 292 Units/L (15-37); BLOOD UREA NITROGEN 56 mg/dL (7-18); CALCIUM 6.8 mg/dL (8.5-10.1); CHLORIDE 106 mmol/L (98-107); CKMB % 0.8 % (<4); CREATINE KINASE 274 Units/L (39-308); CREATINE KINASE MB 2.1 ng/mL (0-4.0); CREATININE 2.72 mg/dL (0.70-1.30); SODIUM 143 mmol/L (136-145); TOTAL PROTEIN 5.5 g/dL (6.4-8.2); TROPONIN I < 0.02 ng/mL (0-1.5); eGFR NON BLACK RACES 27 (>60)
[2021-04-07 15:39] LABS: CARBON DIOXIDE 8.9 mmol/L (21-32); COR NA(FOR HYPERGLY) 155 mmol/L (136-145)
[2021-04-07] MEDS ORDERED: NS 1000 ML 1,000 ML with SODIUM BICARBONATE 8.4% INJ ADULT 100 ML IV SCH ×2 (16:00)
--- NOTE | 2021-04-07 17:19 | DR.UPDATE ---
H&P Update History and Physical Update: History and Physical reviewed and patient examined. Changes noted: NO Yes with the following:will place central and arterial lines H&P Reviewed: Yes Patient was examined?: Yes Procedures (ALL) - Arterial Line Consent obtained: verbal consent (emergency) Time out performed: Yes Size(gauge): 20 Technique used: guided wire technique Post-procedure: dry sterile dressing placed Patient tolerated procedure: Yes Site: right, radial - Central Line Placement PCM.CLCO: verbal consent (emergent) Time out performed: Yes Patient placed pm monitor/pulse ox: Yes MD prep: mask, gown, gloves, other Centrial line prep: chlorhexidine scrub, sterile drapes applied Local anesthsia used: lidocane 1% Ultrasound used for placement: Yes (right ij id'd via u/s and cannulation visualized) Central line lumen ininserted: triple Post procedure: sutured in place, good blood return, all ports aspirated, flushed,capped, sterile dressing applied Post procedure xray: tip oc catheter in good position, no pneumothorax seen Patient tolerated procedure: Yes Complications: none
[2021-04-07] MEDS: LEVOPHED INJ 8 MG in D5W 250 ML IV 242 ML IV PRN (17:30)
[2021-04-07 18:07] LABS: BILIRUBIN,URINE NEGATIVE (NEGATIVE); BLOOD/HEMOGLOBIN,URINE NEGATIVE (NEGATIVE); GLUCOSE, URINE 4+ (NEGATIVE); KETONES,URINE 3+ (NEGATIVE); LEUKOCYTE ESTERASE ,URINE NEGATIVE (NEGATIVE); NITRITES,URINE NEGATIVE (NEGATIVE); PROTEIN,URINE 4+ (NEGATIVE); UROBILINOGEN,URINE NORMAL (NORMAL)
[2021-04-07] MEDS: MYXREDLIN 100 UNIT/100 ML BAG 100 UNIT/100 ML PLAST..BAG IV PRN (18:10)
--- NOTE | 2021-04-07 18:17 | RAD ---
EXAM: CHEST X-RAYHISTORY: Verification of central line position status post line placement.TECHNIQUE: AP chest x-ray dated April 07, 2021 at 5:19 PM.COMPARISON: CXR dated April 07, 2021 at 2:43 PM.FINDINGS:There is a new right internal jugular central venous catheter with distal tip in proximal cavoatrial junction (adequate position). Recommend careful clinical correlation to ensure venous blood return. A stable endotracheal tube is noted with the distal tip approximately 4.4 cm above the mya. Nasogastric tube with distal tip out of [id number] below the hemidiaphragms, presumably within the stomach. Clinical correlation is advised.There are diffuse bilateral lung parenchymal infiltrates, especially in the middle and lower lung jacobson, in keeping with severe acute pneumonia (e.g. Covid pneumonia) in the appropriate clinical setting (with mild interval progression of infiltrates compared with the previous exam); DDX includes mild noncardiogenic pulmonary congestion in the appropriate clinical setting. Clinical correlation is advised.No focal lung consolidation/mass, pleural effusion, or pneumothorax is seen.The heart size and mediastinum are within normal limits. The visualized bony structures are within normal limits.IMPRESSION:1. New right internal jugular central venous catheter with distal tip in proximal cavoatrial junction (adequate position). Recommend careful clinical correlation to ensure venous blood return.2. Diffuse bilateral lung parenchymal infiltrates, especially in the middle and lower lung jacobson, in keeping with severe acute pneumonia (e.g. Covid pneumonia) in the appropriate clinical setting (with mild interval progression of infiltrates compared with the previous exam); DDX includes mild noncardiogenic pulmonary congestion in the appropriate clinical setting. Clinical correlation is advised.3. Recommend clinical correlation and appropriate follow-up x-ray to ensure interval clearance.4. Consider follow-up evaluation with noncontrast chest CT to confirm Covid pneumonia as clinically warranted.Electronically signed by: Kalpesh Ibrahim (Apr 07, 2021 18:13:07)
[2021-04-07] MEDS ORDERED: NS IV ONE ×2 (18:36→21:51)
[2021-04-07] MEDS ORDERED: ACTEMRA IV ONE (18:36)
[2021-04-07 18:37] LABS: AMORPHOUS SEDIMENT,UR 1+ /HPF (NEGATIVE); APPEARANCE,URINE HAZY (CLEAR); BACTERIA,URINE 1+ /HPF (NEGATIVE); COLOR,URINE STRAW (YELLOW); RBC,URINE NONE SEEN /HPF (0-3); SQUAMOUS EPITHELIAL CELL,UR NEGATIVE /HPF (NEGATIVE)
[2021-04-07] MEDS ORDERED: HumaLOG SC ONE ×2 (19:15→21:21)
--- NOTE | 2021-04-07 19:17 | RAD ---
Abdomen single viewIndication: NG tube placementFINDINGSNG tube tip and side port projected over the stomach. There is no no free air or pneumatosis seen.IMPRESSIONNG tube projects over the stomach.Electronically signed by: MARSHA JUSTIN (Apr 07, 2021 19:13:54)
[2021-04-07] MEDS ORDERED: SNACK - Diabetic Appropriate PO SCH (20:00)
[2021-04-07] MEDS: SEROquel TAB 25 mg PO SCH (20:41)
[2021-04-07] MEDS: SNACK - Diabetic Appropriate PO SCH (20:43)
[2021-04-07 21:01] LABS: ABG BASE EXCESS -16.8 mmol/L (-2.0-2.0)
[2021-04-07 21:02] LABS: ABG HCO3 11.3 mmol/L (22-26)
[2021-04-07 21:04] LABS: CREATININE 2.83 mg/dL (0.70-1.30)
[2021-04-07 21:07] LABS: CARBON DIOXIDE 14.7 mmol/L (21-32)
[2021-04-07] MEDS ORDERED: HEPARIN SODIUM IN D5W 25,000 UNITS/500 ML BAG IV PRN (21:35)
[2021-04-07] MEDS ORDERED: CALCIUM GLUCONATE IV ONE (21:51)
[2021-04-07] MEDS: LACRI-LUBE S.O.P. AFFEYE SCH (22:41)
[2021-04-07] MEDS: DIPRIVAN PREMIX 1 GRAM IV 1,000 MG/100 ML VIAL IV PRN (23:57)
[2021-04-08] MEDS: NS 1000 ML 1,000 ML with SODIUM BICARBONATE 8.4% INJ ADULT 50 ML IV SCH ×6 (01:10→05:59)
[2021-04-08] MEDS: HEPARIN SODIUM INJ 5000 UNITS IVP ONE ×2 (01:25→09:15)
[2021-04-08 01:29] LABS: CREATININE 2.88 mg/dL (0.70-1.30)
[2021-04-08] MEDS: ASCORBIC ACID INJ MULTI-DOSE VIAL 1,500 MG in NS 50 ML IV 50 ML IV SCH ×2 (03:05→08:15)
[2021-04-08 05:17] LABS: ABG BASE EXCESS -8.5 mmol/L (-2.0-2.0); ABG HCO3 16.5 mmol/L (22-26)
[2021-04-08] MEDS: MAGIC MOUTHWASH MT SCH ×2 (05:19→13:48)
--- NOTE | 2021-04-08 05:43 | RAD ---
PROCEDURE: Chest X-ray 1 View .HISTORY: Follow-up pneumonia and ventilator dependence.TECHNIQUE: AP view .COMPARISON: 04/07/2021.TECHNICAL QUALITY: Satisfactory .FINDINGS:Endotracheal, NG tube, and right internal jugular central line all remain in good position.Unremarkable cardio mediastinal silhouette.Bilateral moderate consolidation consistent with pneumonia unchanged from previous study with no pleural fluid or pneumothorax.IMPRESSION:Unchanged bilateral pneumonia.Electronically signed by: Josue Marrufo (Apr 08, 2021 05:40:13)
[2021-04-08] MEDS: LEVOPHED INJ 8 MG in D5W 250 ML IV 242 ML IV PRN (05:50)
[2021-04-08] MEDS ORDERED: DIPRIVAN PREMIX 1 GRAM IV 1,000 MG/100 ML VIAL ONE (06:09)
[2021-04-08 06:15] LABS: BASOPHILS % (AUTO) 0.1 % (0.2-1.0); HEMATOCRIT 28.2 % (42.0-54.0); HEMOGLOBIN 9.6 g/dL (13.5-18.0); LYMPHOCYTES # (AUTO) 0.3 X10^3/uL (1.3-2.9); LYMPHOCYTES % (AUTO) 2.8 % (21.0-51.0); MEAN CORPUSCULAR HEMOGLOBIN 30.3 pg (27.0-34.0); MEAN PLATELET VOLUME 7.8 fL (7.4-11.0); MONOCYTES # (AUTO) 0.8 x10^3/uL (0.3-0.8); MONOCYTES % (AUTO) 6.7 % (0.0-13.0); NEUTROPHILS # (AUTO) 10.5 x10^3/uL (2.2-4.8); NEUTROPHILS % (AUTO) 90.4 % (42.0-75.0); PLATELET COUNT 305 X10^3/uL (150.0-450.0); RED BLOOD COUNT 3.17 X10^6/uL (4.7-6.0); RED CELL DISTRIBUTION WIDTH 13.6 % (11.6-16.5); WHITE BLOOD COUNT 11.6 X10^3/uL (3.6-10.0)
[2021-04-08 06:43] LABS: ALBUMIN 0.8 g/dL (3.4-5.0); CARBON DIOXIDE 17.5 mmol/L (21-32); COR CA(FOR HYPOALB) 8.4 mg/dL (8.5-10.1); CREATININE 3.09 mg/dL (0.70-1.30); TOTAL PROTEIN 3.9 g/dL (6.4-8.2)
[2021-04-08] MEDS: DIPRIVAN PREMIX 1 GRAM IV 1,000 MG/100 ML VIAL IV PRN ×3 (07:03→15:33)
[2021-04-08 07:41] LABS: CALCIUM 5.8 mg/dL (8.5-10.1)
[2021-04-08 08:13] LABS: BAND NEUTROPHILS % 3 % (0-10); PLATELET MORPHOLOGY COMMENT NORMAL (NORMAL)
[2021-04-08] MEDS: ZOSYN VIAL 3.375 GRAMS 3.375 G in NS 100 ML IV + SPIKE MINIBAG* 100 ML IV SCH (08:30)
[2021-04-08] MEDS ORDERED: D5 1/2 NS 1000 ML 1,000 ML IV PRN (08:33)
[2021-04-08] MEDS: BROVANA IN SCH (09:00)
[2021-04-08] MEDS: PULMICORT NEB TX 0.5 MG NEB SCH (09:00)
[2021-04-08] MEDS ORDERED: HEPARIN SODIUM INJ 5000 UNITS ONE (09:16)
--- NOTE | 2021-04-08 09:58 | PCM.PROG ---
Progress Note Progress Note for Day of Date of Exam: 04/08/21 Subjective Subjective: Pt is a 45 year old male past medical history of Hypertension, DMT2, admitted for Acute Respiratory Failure due to COVID-19 pneumonia, DKA, and Acute Renal Failure. Yesterday, pt had removed his BiPAP and was found by nurse unresponsive, hypoxic, and in asystole. ACLS protocol performed with ROSC. He is currently on mechanical ventilation(04/08), sedation with propofol, has central line and arterial line, on vasopressors Levophed gtt, IVF/insulin gtt per DKA protocol, and Heparin gtt due to high risk from COVID-19 for embolism, elevated D-dimer, and unable to get CTA chest due to renal failure. Labs/ imaging: ABG: pH 7.32, pCO2 32, pO2 98, HCO3 16.5, O2 sat 97% on FiO2 100%. Wbc 11.6, Hgb 9.6, Plt 305, Na 148, K 3.5, HCO3 17.5, Creatinine 3.09, Glucose 265, CRP 82, Ca 5.8, CXR: Unchanged bilateral pneumonia. Blood/Urine cultures pending. Other treatments include: Remdesivir, scheduled Bronchodilators, Antibiotics: Zosyn, Ivermectin, Respiratory therapy consult, Pneumonia protocol, DKA protocol, SSI. Hold nephrotoxic agents. Will continue with titration and weaning protocols on ventilator setting and vasopressor support. Acidosis has improved, continue to adjust fluid and insulin gtt. Calcium gluconate added for hypocalcemia. Attempt to transfer to multiple higher level of care facilities unsuccessful due to filled ICU beds from pandemic. Continue to closely monitor patient. Critical care time spent 30-74 minutes in clinical assessment, reviewing labs/imaging, decision making, and documentation. Past Medical Family Social History Past Med/Fam/Surg Hx: No changes since H&P Allergies: Allergies No Known Drug Allergies Allergy (Verified 04/04/21 17:03) Review of Systems ROS: Changes notes (describe) ROS changes noted: sedated, mechanical ventilation Vital Signs and I&O's Vital Signs: Temperature 99.6 F Pulse Rate [Left Radial] 97 Pulse Rate 98 Respiratory Rate 31 Blood Pressure [Left Arm] 185/94 Blood Pressure 112/57 O2 Sat by Pulse Oximetry 98 Intake and Output: Intake & Output 04/05/21 04/06/21 04/07/21 04/08/21 23:59 23:59 23:59 23:59 Intake Total 3060 / 3060 771 / 771 602 / 602 259 / 259 Output Total 450 / 450 1000 / 1000 950 / 950 Balance 2610 / 2610 -229 / -229 -348 / -348 259 / 259 Physical Exam Oriented: Other (Sedated, mechanical ventilation) Eyes: Normal Ear: Normal Nose: Normal Throat: Normal Respiratory: Diminished and [place]ales Cardiovascular: Normal : Normal Auscultation: Bowel Sounds: Normal Tenderness: Normal Skin: Normal Musculoskeletal: Normal Psychiatric: Other (sedated, mechanical ventilation) Speech Pattern: Artificially Ventilated Laboratory and Diagnostics Result Diagrams: 04/08/21 04:45 04/08/21 04:45 Labs: 04/07/21 16:57 Urine,Catheterized Urine Culture - Preliminary Laboratory WBC 11.6 X10^3/uL (3.6-10.0) H 04/08/21 04:45 RBC 3.17 X10^6/uL (4.7-6.0) L 04/08/21 04:45 Hgb 9.6 g/dL (13.5-18.0) L D 04/08/21 04:45 Hct 28.2 % (42.0-54.0) L 04/08/21 04:45 MCV 89.0 fL (80.0-100.0) 04/08/21 04:45 MCH 30.3 pg (27.0-34.0) 04/08/21 04:45 MCHC 34.0 g/dL (33.0-35.0) 04/08/21 04:45 RDW 13.6 % (11.6-16.5) 04/08/21 04:45 Plt Count 305 X10^3/uL (150.0-450.0) 04/08/21 04:45 Plt Count Comment Adequate (ADEQUATE) 04/08/21 04:45 MPV 7.8 fL (7.4-11.0) 04/08/21 04:45 Neut % (Auto) 90.4 % (42.0-75.0) H 04/08/21 04:45 Lymph % (Auto) 2.8 % (21.0-51.0) L 04/08/21 04:45 [place] % (Auto) 6.7 % (0.0-13.0) 04/08/21 04:45 Eos % (Auto) 0.0 % (0.9-2.9) L 04/08/21 04:45 Baso % (Auto) 0.1 % (0.2-1.0) L 04/08/21 04:45 Neut # (Auto) 10.5 x10^3/uL (2.2-4.8) H 04/08/21 04:45 Lymph # (Auto) 0.3 X10^3/uL (1.3-2.9) L 04/08/21 04:45 [place] # (Auto) 0.8 x10^3/uL (0.3-0.8) 04/08/21 04:45 Eos # (Auto) 0.0 x10^3/uL (0.0-0.2) 04/08/21 04:45 Baso # (Auto) 0.0 X10^3/uL (0.0-0.1) 04/08/21 04:45 Absolute Nucleated RBC 0.0 /100WBC 04/08/21 04:45 Total Counted 100 04/08/21 04:45 Neutrophils % (Manual) 89 % (39-76) H 04/08/21 04:45 Band Neutrophils % 3 % (0-10) 04/08/21 04:45 Lymphocytes % (Manual) 3 % (13-43) L 04/08/21 04:45 Monocytes % (Manual) 5 % (4-9) 04/08/21 04:45 Plt Morphology Comment Normal (NORMAL) 04/08/21 04:45 RBC Morphology Normal (NORMAL) 04/08/21 04:45 PT 21.1 SECONDS (11.8-14.3) 04/07/21 23:40 INR Target Range - 04/07/21 23:40 INR 1.93 (0.8-1.3) H 04/07/21 23:40 APTT 29.8 SECONDS (22.9-36.5) 04/07/21 23:40 PTT Comment - 04/07/21 23:40 D-Dimer 2.06 ug/ml (0.0-0.57) H* 04/05/21 10:26 Sample Site A line 04/08/21 05:00 ABG pH 7.320 (7.35-7.45) L 04/08/21 05:00 ABG pCO2 32.0 mmHg (35.0-45.0) L 04/08/21 05:00 ABG pO2 98.0 mmHg (80.0-100.0) 04/08/21 05:00 ABG HCO3 16.5 mmol/L (22-26) L* 04/08/21 05:00 ABG O2 Saturation 97.0 % (90-100) 04/08/21 05:00 ABG Base Excess -8.5 mmol/L (-2.0-2.0) L 04/08/21 05:00 [place] Test Na 04/08/21 05:00 A-a Gradient 575.0 mmHg 04/08/21 05:00 FiO2 100.0 04/08/21 05:00 Blood Gas Comments Liam well sw 04/08/21 05:00 Sodium 148 mmol/L (136-145) H 04/08/21 04:45 Corrected Sodium 152 mmol/L (136-145) H 04/08/21 04:45 Potassium 3.5 mmol/L (3.5-5.1) 04/08/21 04:45 Chloride 115 mmol/L (98-107) H* 04/08/21 04:45 Carbon Dioxide 17.5 mmol/L (21-32) L 04/08/21 04:45 BUN 69 mg/dL (7-18) H 04/08/21 04:45 Creatinine 3.09 mg/dL (0.70-1.30) H 04/08/21 04:45 Est GFR (MDRD) Af Amer 28 (>60) L 04/08/21 04:45 Est GFR (MDRD) Non-Af 23 (>60) L 04/08/21 04:45 Glucose 265 mg/dL (65-99) H 04/08/21 04:45 Hemoglobin A1c 12.8 % 04/07/21 04:41 Calcium 5.8 mg/dL (8.5-10.1) L* 04/08/21 04:45 Corrected Calcium 8.4 mg/dL (8.5-10.1) L 04/08/21 04:45 Total Bilirubin 0.20 mg/dL (0.2-1.0) 04/08/21 04:45 AST 119 Units/L (15-37) H 04/08/21 04:45 ALT 49 Units/L (12-78) 04/08/21 04:45 Alkaline Phosphatase 142 Units/L (46-116) H 04/08/21 04:45 Creatine Kinase 274 Units/L (39-308) 04/07/21 15:00 CK-MB (CK-2) 2.1 ng/mL (0-4.0) 04/07/21 15:00 CK/CKMB % Calc 0.8 % (<4) 04/07/21 15:00 Troponin I < 0.02 ng/mL (0-1.5) 04/07/21 15:00 C-Reactive Protein 82.00 mg/L (0-3.0) H 04/08/21 04:45 Total Protein 3.9 g/dL (6.4-8.2) L 04/08/21 04:45 Albumin 0.8 g/dL (3.4-5.0) L 04/08/21 04:45 Globulin 3.1 g/dL (2.5-4.5) 04/08/21 04:45 Albumin/Globulin Ratio 0.3 Ratio (1.1-2.1) L 04/08/21 04:45 Specimen Type Clean catch urine 04/07/21 16:57 Urine Color Straw (YELLOW) 04/07/21 16:57 Urine Appearance Hazy (CLEAR) 04/07/21 16:57 Urine pH 5.0 (5.0 - 8.0) 04/07/21 16:57 Ur Specific [place] 1.020 (1.000-1.030) 04/07/21 16:57 Urine Protein 4+ (NEGATIVE) 04/07/21 16:57 Urine Glucose (UA) 4+ (NEGATIVE) 04/07/21 16:57 Urine Ketones 3+ (NEGATIVE) 04/07/21 16:57 Urine Occult Blood Negative (NEGATIVE) 04/07/21 16:57 Urine Nitrite Negative (NEGATIVE) 04/07/21 16:57 Urine Bilirubin Negative (NEGATIVE) 04/07/21 16:57 Urine Urobilinogen Normal (NORMAL) 04/07/21 16:57 Ur Leukocyte Esterase Negative (NEGATIVE) 04/07/21 16:57 Urine RBC None seen /HPF (0-3) 04/07/21 16:57 Urine WBC None seen /HPF (0-5) 04/07/21 16:57 Ur Squamous Epith Cells Negative /HPF (NEGATIVE) 04/07/21 16:57 Amorphous Sediment 1+ /HPF (NEGATIVE) 04/07/21 16:57 Urine Bacteria 1+ /HPF (NEGATIVE) 04/07/21 16:57 Coarse Granular Casts Few /HPF (NEGATIVE) 04/04/21 18:03 Urine Mucus Few /HPF (NEGATIVE) 04/04/21 18:03 Ur Culture Indicated? Yes/culture set up 04/07/21 16:57 Acetone, Semi-Quant Large (NEGATIVE) H 04/04/21 16:30 SARS CoV-2 RNA Rapid SHIRIN Positive (NEGATIVE) A 04/05/21 13:00 Plan (1) Pneumonia due to COVID-19 virus: Status: Acute Plan: Per protocol (2) Acute renal failure: Status: Acute Plan: IVF, monitor renal function (3) Acute respiratory failure: Status: Acute
[2021-04-08] MEDS: CHLORASEPTIC SPRAY MT SCH ×2 (10:04→13:35)
[2021-04-08] MEDS: REMDESIVIR 100 MG in NS 250 ML IV 250 ML IV SCH (10:53)
[2021-04-08] MEDS: LACRI-LUBE S.O.P. AFFEYE SCH (13:35)
[2021-04-08] MEDS: IVERMECTIN PO SCH (13:35)
[2021-04-08] MEDS: PEPCID TAB 40 MG PO SCH (13:36)
[2021-04-08] MEDS: VITAMIN A PO SCH (13:38)
[2021-04-08] MEDS: VITAMIN D3 125 mcg (5,000 UNITS) PO SCH (13:42)
[2021-04-08] MEDS: ZINC SULFATE PO SCH (13:42)
[2021-04-08] MEDS: MYXREDLIN 100 UNIT/100 ML BAG 100 UNIT/100 ML PLAST..BAG IV PRN (14:38)
[2021-04-08] MEDS ORDERED: NS 1000 ML 1,000 ML with SODIUM BICARBONATE 8.4% INJ ADULT 50 ML IV SCH ×4 (15:00)
[2021-04-08 18:53] VITALS: BP 112/64
[2021-04-08] MEDS ORDERED: SNACK - Diabetic Appropriate PO SCH (20:00)
== END 2021-04-08 18:10 | disposition home or self-care (01) | DRG 177 ==
LOC: EDSEX → ER 15:56 → OBS 15:56 → MED/SURG 04-06 17:15 → ICU 04-07 16:42
PROVIDERS: ADMIT Internal Medicine; ATTEND Internal Medicine
DX: I10 Essential (primary) hypertension; J96.00 Acute respiratory failure, unspecified whether with hypoxia or hypercapnia; Z78.1 Physical restraint status; J12.82 Pneumonia due to coronavirus disease 2019; E78.2 Mixed hyperlipidemia; E11.10 Type 2 diabetes mellitus with ketoacidosis without coma; U07.1 COVID-19; N17.8 Other acute kidney failure; R26.89 Other abnormalities of gait and mobility